=== PATIENT | female | born 1940 | race Caucasian/White ===

== ENCOUNTER 2018-02-27 12:31 | Inpatient (IN) ==
--- NOTE | 2018-02-27 12:51 | Emergency Department Note ---
Disposition Clinical Impression: Abnormal LFTs (liver function tests), Sinus bradycardia, Lightheadedness, Generalized weakness Acute kidney failure Qualifiers: Acute renal failure type: unspecified Qualified Code(s): N17.9 - Acute kidney failure, unspecified Leukocytosis, unspecified Qualifiers: Leukocytosis type: unspecified Qualified Code(s): D72.829 - Elevated white blood cell count, unspecified Nausea & vomiting Qualifiers: Vomiting type: unspecified Vomiting Intractability: unspecified Qualified Code( s): R11.2 - Nausea with vomiting, unspecified Disposition: Admitted As Inpatient Condition: Fair Referrals: Vinicius Jones MD [Primary Care Provider] - Forms: ED Satisfaction Letter Time of Disposition: 16:15 General Adult HPI - General Chief complaint: ED Abdominal Pain Stated complaint: DAYO -need UTS sent from [place] ER/nausea Time Seen by Provider: 02/27/18 12:35 Source: patient, EMS, customer relations consultant, other Mode of arrival: wheelchair Limitations: no limitations Nursing Notes Reviewed: Yes Vital Signs Reviewed: Yes - History of Present Illness HPI Narrative: 77 y F with PMHX of HTN, HL, and hypothyroidism presenting with acute onset of nausea and with subsequent dizziness. Context: Patient was making bed sheets at time of onset of nausea. Onset: yesterday evening at approx. 8 pm. Duration: For remainder of evening. Quality: Patient rates 10/10, which has now relieved, dizziness has remained on standing until this morning, which is why she presented to the ED. Modifying factors: Dizziness worsens with walking. Palliating factors: None identified. Associated symptoms:Endorses early satiety for an unknown period and weakness x 1 year. Denies any yellowing of skin or yes. Denies abdominal pain or urinary symptoms. Endorses taking Tylenol BID. Denies any additional OTC pain medication. Endorses urine output remains at baseline, however has not had any fluids this morning because of her intention to go to the hospital and believed she had to be NPO for ED visit. No alcohol use. No illicit drug use. Last hospitalization: Pt was hospitalized June 2017 following a compression fracture. Pain Scale: 0 - Related Data Home Medications Medication Instructions Recorded Confirmed ALPRAZolam [Xanax 0.5 MG Tablet] 0.5 mg PO HS 07/10/17 02/27/18 Acetaminophen [Tylenol] 500 mg PO Q6HR PRN 07/10/17 02/27/18 Atenolol [Tenormin] 100 mg PO DAILY 07/10/17 02/27/18 Cholecalciferol (D-3) [Vitamin D] 1,000 unit PO DAILY 07/10/17 02/27/18 Cyanocobalamin (Vitamin B-12) 1,000 mcg SL DAILY 07/10/17 02/27/18 [Vitamin B-12] Levothyroxine [Synthroid] 75 mcg PO DAILY 07/10/17 02/27/18 Losartan Potassium [Cozaar] 100 mg PO DAILY 07/10/17 02/27/18 Lovastatin [Mevacor] 20 mg PO HS 07/10/17 02/27/18 Meloxicam [Meloxicam] 15 mg PO DAILY 07/10/17 02/27/18 Multivitamin [One Daily 1 each PO DAILY 07/10/17 02/27/18 Multivitamin] Tramadol HCl [Ultram] 50 mg PO TID 07/10/17 02/27/18 ALPRAZolam [Xanax 0.5 MG Tablet] 0.25 mg PO BID 02/27/18 02/27/18 Alendronate Sodium [Fosamax] 70 mg PO MO 02/27/18 02/27/18 Spironolactone [Aldactone] 25 mg PO DAILY 02/27/18 02/27/18 Allergies Allergy/AdvReac Type Severity Reaction Status Date / Time amlodipine AdvReac Nausea/WEAK Verified 02/27/18 16:14 All systems ED: reviewed and negative except as stated. Review of Systems: As Per HPI Constitutional: Reports: weakness (x1 yr). Denies: fever, chills, weight change Cardiovascular: Denies: chest pain, palpitations Respiratory: Denies: cough, dyspnea Gastrointestinal: Reports: nausea, vomiting (x1, non-bloody). Denies: abdominal pain, melena, hematochezia Genitourinary: Denies: urgency, dysuria, frequency, hematuria Musculoskeletal: Reports: back pain, arthralgia (chronic) Neurological: Reports: weakness. Denies: headache, numbness, paresthesias, confusion, abnormal gait, vertigo Hematological/Lymphatic: Reports: easy bruising. Denies: easy bleeding Past Medical History - Past Medical History Medical history: Reports: arthritis, hyperlipidemia, hypertension, thyroid disease Surgical history: Reports: appendectomy, cataract, hysterectomy, orthopedic, other Psychiatric history: Reports: anxiety - Social History Smoking Status: Former smoker Smokeless Tobacco Status: No Alcohol use: Reports: none Drug use: Reports: none Physical Exam Exam performed with attending. - General Limitations: no limitations General appearance: alert - Head Head exam: atraumatic, normocephalic, normal inspection - Eye Eye exam: Present: normal appearance, PERRL, EOMI. Absent: scleral icterus - ENT ENT exam: normal exam, normal oropharynx, mucous membranes moist - Neck Neck exam: Present: normal inspection, full ROM. Absent: lymphadenopathy, thyromegaly - Chest Chest inspection: Present: normal inspection, symmetric chest wall rise. Absent : tenderness - Respiratory Respiratory exam: Present: normal lung sounds bilaterally. Absent: respiratory distress, wheezes - Cardiovascular Cardiovascular exam: Present: normal rhythm, bradycardia, normal heart sounds - Abdominal Exam Abdominal exam: Present: soft, Non-Tender, normal bowel sounds. Absent: tenderness, organomegaly - Extremities Exam Extremities exam: Present: normal inspection. Absent: pedal edema - Back Exam Back exam: Present: normal inspection. Absent: tenderness, CVA tenderness (R), CVA tenderness (L), paraspinal tenderness - Neurological Exam Neurological exam: Present: alert, oriented X3, CN II-XII intact, reflexes normal. Absent: motor sensory deficit - Psychiatric Psychiatric exam: Present: normal affect, normal mood - Skin Skin exam: Present: warm, dry, intact, normal color. Absent: rash, diaphoresis Course - Reevaluation(s) Reevaluation #1: 14:50 - Bedside U/S completed by Dr. Marsh. CBC, BMP, hepatic panel, EKG reviewed with attending. Patient away for imaging. Will re-evaluate on return. Reevaluation #2: 15:08 - Lying comfortably, endorses dizziness on standing. Denies any pain. Awaiting U/S finding results. Reevaluation #3: 15:33 - U/S report reviewed with attending. Discussed plan with patient and family with current consideration for consultation with hospitalist, patient amenable to plan. - Consultations Consultation #1: 16:15 - Discussed clinical presentation, labs and imaging with hospitalist. Hospitalist Dr. Purcell accepts admission. Vital Signs Pulse Rate 68 02/27/18 12:40 Respiratory Rate 20 02/27/18 12:40 Blood Pressure 117/54 02/27/18 12:40 O2 Sat by Pulse Oximetry 94 02/27/18 12:40 Temperature 97.6 F 02/27/18 12:44 Pulse Rate 53 02/27/18 16:25 Respiratory Rate 20 02/27/18 16:25 Blood Pressure 88/56 02/27/18 16:25 O2 Sat by Pulse Oximetry 95 02/27/18 16:25 Oxygen Delivery Oxygen Delivery Room Air Medical Decision Making - MDM Narrative Medical decision making narrative: Patient is a 77-year-old white female with a history of arthritis, hypertension , hyperlipidemia who presents to the emergency department sent from her primary care's office. Endorses 2 week history of gradually worsening generalized weakness worse with ambulation and activities at home, endorses one episode of nonbilious nonbloody vomiting. Patient bradycardic on arrival but has a stable blood pressure and does not appear symptomatic No abdominal pain on exam. EKG showed a left bundle-branch morphology but sinus rhythm, with no change from prior EKG and no evidence of ischemia. Lab derangements renal function, as well as her transaminases. Lactate wnl. White count of 17 with a left shift. Continuous cardiac monitoring and continuous pulse ox, start IV fluids, labs to determine further etiology and imaging. - Medical Records Medical records reviewed: Yes I reviewed the patient's medical records. - Lab Data Lab results reviewed: Yes I reviewed the patient's lab results. Lab Results 02/27/18 02/27/18 Range/Units 13:52 13:52 Magnesium 2.0 (1.6-2.6) mg/dL Troponin I 0.04 H* (< 0.04) ng/mL TSH 5.297 (0.340-5.600) mcIU/mL - Radiology Data Radiology results reviewed: Yes I reviewed the patient's radiology results. Impressions Abdomen/Pelvis CT 02/27/18 13:23 IMPRESSION: Small stone measuring approximately 4 mm in diameter located within the region of the gallbladder neck, no evidence for acute cholecystitis. Postsurgical changes seen in the small bowel with bowel wall thickening noted within the distal and terminal ileum may be secondary to inflammatory changes versus possible inflammatory bowel disease or be related to chronic postsurgical changes. D/ / 02/27/2018 14:58:34 Govind Evans MD / Marianela Kearney Interpreting Provider: Govind Evans MD Bedside U/S Biliary 02/27/18 IMPRESSION: No pericholecystic fluid. Anterior gallbladder wall diameter 0.25 cm. Common bile duct diameter 0.55 cm. No sonographic Rivas's sign. Positive for stone vs. polyp. Recommendation for formal follow-up U/S. Performed by: Carlos Marsh DO Interpreting Provider: Carlos Marsh DO - EKG Data EKG #1 EKG results narrative: 13:03:11 Vent 43. QRS duration 134 ms. QT/QTc 495/440 ms. Left bundle-branch morphology but sinus rhythm, with no change from prior EKG and no evidence of ischemia. Reviewed with attending.
[2018-02-27] MEDS ORDERED: 0.9 % Sodium Chloride 500 ML IVC ONE (13:29)
--- NOTE | 2018-02-27 13:50 | Emergency Department Note ---
Disposition Clinical Impression: Abnormal LFTs (liver function tests), Sinus bradycardia, Lightheadedness, Generalized weakness Acute kidney failure Qualifiers: Acute renal failure type: unspecified Qualified Code(s): N17.9 - Acute kidney failure, unspecified Leukocytosis, unspecified Qualifiers: Leukocytosis type: unspecified Qualified Code(s): D72.829 - Elevated white blood cell count, unspecified Nausea & vomiting Qualifiers: Vomiting type: unspecified Vomiting Intractability: unspecified Qualified Code( s): R11.2 - Nausea with vomiting, unspecified Disposition: Admitted As Inpatient Condition: Fair Referrals: Vinicius Jones MD [Primary Care Provider] - Forms: ED Satisfaction Letter General Adult HPI - General Chief complaint: ED Abdominal Pain Stated complaint: DAYO -need UTS sent from [place] ER/nausea Time Seen by Provider: 02/27/18 12:35 Source: patient, EMS, beater engineer, other Mode of arrival: wheelchair Limitations: no limitations Nursing Notes Reviewed: Yes Vital Signs Reviewed: Yes - History of Present Illness Pain Scale: 0 - Related Data Home Medications Medication Instructions Recorded Confirmed ALPRAZolam [Xanax 0.5 MG Tablet] 0.5 mg PO HS 07/10/17 02/27/18 Acetaminophen [Tylenol] 500 mg PO Q6HR PRN 07/10/17 02/27/18 Atenolol [Tenormin] 100 mg PO DAILY 07/10/17 02/27/18 Cholecalciferol (D-3) [Vitamin D] 1,000 unit PO DAILY 07/10/17 02/27/18 Cyanocobalamin (Vitamin B-12) 1,000 mcg SL DAILY 07/10/17 02/27/18 [Vitamin B-12] Levothyroxine [Synthroid] 75 mcg PO DAILY 07/10/17 02/27/18 Losartan Potassium [Cozaar] 100 mg PO DAILY 07/10/17 02/27/18 Lovastatin [Mevacor] 20 mg PO HS 07/10/17 02/27/18 Meloxicam [Meloxicam] 15 mg PO DAILY 07/10/17 02/27/18 Multivitamin [One Daily 1 each PO DAILY 07/10/17 02/27/18 Multivitamin] Tramadol HCl [Ultram] 50 mg PO TID 07/10/17 02/27/18 ALPRAZolam [Xanax 0.5 MG Tablet] 0.25 mg PO BID 02/27/18 02/27/18 Alendronate Sodium [Fosamax] 70 mg PO MO 02/27/18 02/27/18 Spironolactone [Aldactone] 25 mg PO DAILY 02/27/18 02/27/18 Allergies Allergy/AdvReac Type Severity Reaction Status Date / Time amlodipine AdvReac Nausea/WEAK Verified 02/27/18 16:14 Constitutional: Reports: weakness. Denies: fever, chills, weight change Cardiovascular: Denies: chest pain, palpitations Respiratory: Denies: cough, dyspnea Gastrointestinal: Reports: nausea, vomiting (x1, non-bloody). Denies: abdominal pain, melena, hematochezia Genitourinary: Denies: urgency, dysuria, frequency, hematuria Musculoskeletal: Reports: back pain, arthralgia (chronic) Neurological: Reports: weakness Hematological/Lymphatic: Reports: easy bruising. Denies: easy bleeding Past Medical History - Past Medical History Medical history: Reports: arthritis, hyperlipidemia, hypertension, thyroid disease Surgical history: Reports: appendectomy, cataract, hysterectomy, orthopedic, other Psychiatric history: Reports: anxiety - Social History Smoking Status: Former smoker Smokeless Tobacco Status: No Alcohol use: Reports: none Drug use: Reports: none Physical Exam - General Limitations: no limitations General appearance: alert Course Vital Signs Pulse Rate 68 02/27/18 12:40 Respiratory Rate 20 02/27/18 12:40 Blood Pressure 117/54 02/27/18 12:40 O2 Sat by Pulse Oximetry 94 02/27/18 12:40 Temperature 97.6 F 02/27/18 12:44 Pulse Rate 40 02/27/18 17:00 Respiratory Rate 20 02/27/18 17:00 Blood Pressure 90/53 02/27/18 17:00 O2 Sat by Pulse Oximetry 96 02/27/18 17:00 Oxygen Delivery Oxygen Delivery Nasal Cannula Medical Decision Making - Lab Data Lab Results 02/27/18 02/27/18 Range/Units 13:52 13:52 Magnesium 2.0 (1.6-2.6) mg/dL Troponin I 0.04 H* (< 0.04) ng/mL TSH 5.297 (0.340-5.600) mcIU/mL Attestation Statement - Attestation Attestation: I examined this patient and my medical decision-making was reviewed with the Resident Physician, Dr. Woodard. I agree with the documented findings, disposition and treatment plan as described except to the extent set forth below. Patient is a 77-year-old white female with a history of arthritis, hypertension , hyperlipidemia who presents to the emergency department sent from her primary care's office for which she relates to me as a 2 week history of gradually worsening generalized weakness worse with ambulation and activities at home and over the past 48 hours is been experiencing lightheadedness with positional changes that she describes as "dizziness". Patient states that she feels okay if she is lying or seated but if she goes to stand up she has a lot of lightheadedness that seems to persist for some time and is relieved by sitting or lying back down. Patient denies any chest pain pressure or heaviness with this no palpitations or heart racing sensation, no shortness of breath, no diaphoresis. Patient's had no fevers chills recent illness cough or sore throat. Patient denies any abdominal pain but does mention that this morning early in the morning before breakfast she had one episode of nonbilious nonbloody vomiting. Patient states that she thinks she just got nauseous because she did not eat anything and she denies any vomiting since that time and no current nausea. Patient had no bowel changes no bright red blood per rectum no other symptoms. Patient's very vague with her symptomatology just states she has not been feeling quite well. Patient's bradycardic on arrival but has a stable blood pressure and does not appear symptomatic with this bradycardia. She was able to change positions from lying to seated in the bed without any recurrence of symptoms and while sitting in the bed is asymptomatic. I agree with patient's physical exam findings as documented. BP pressure is stable. Patient had an EKG which shows a left bundle-branch morphology but sinus rhythm no change from prior EKG and no evidence of ischemia. Labs were done on an outpatient basis and in the system we have her current CBC , comp basic metabolic panel including loss and calcium, coags lipase urinalysis and tox. Patient has significant lab derangements that are new in regards to her renal function, as well as her transaminases. Lactate is within normal limits despite a white count of 17 with a left shift. Clinically patient has no symptoms or complaints leading to possible infection. At this time we will keep the patient on cardiac monitoring and continuous pulse ox, start IV fluids, obtain additional lab work and imaging. Patient is in no acute distress at this time we will monitor closely. Patient has remained hemodynamically stable with no clinical changes throughout her ED course. CT abdomen and pelvis show possible stone in the neck the gallbladder without wall thickening or pericholecystic inflammatory changes. Remainder of CT is unremarkable. Gallbladder ultrasound showed some question we will change in the liver consistent with hemangioma no other additional findings. Patient will be admitted for further evaluation of her acute renal insufficiency as well as her transaminitis, and leukocytosis with unclear etiology. Case was discussed with hospitalist who accepted patient for admission for further evaluation and management.
[2018-02-27 14:39] LABS: Thyroid Stimulating Hormone 5.297 mcIU/mL (0.340-5.600)
--- NOTE | 2018-02-27 20:04 | Internal Med History&Physical ---
Date of Encounter: 02/27/18 Time of Encounter: 20:03 Internal Medicine - H&P: HPI Chief complaint: nausea and lightheadedness Admitted From: Emergency Dept Plans for Post Hospital Care: Home History of present illness: Ms. Gabriel is a 77 year old female Patient with history of hypertension, hypothyroidism, arthritis and high cholesterol. Patient was seen at the [facility] emergency room and then transferred here to the emergency room here for further evaluation. Patient has symptoms of generalized weakness , feeling very tired for several days also lightheadedness especially when she stands up with some nausea but no vomiting on arrival to the emergency room patient with bradycardia docu, ented 40s but normal blood pressure patient denies any chest pain some mild abdominal pain. Evaluation showed several abnormalities CT of the abdomen showed stone in the gallbladder 4 mm with no cholecystitis follow- up ultrasound showed liver abnormalities possible cyst vs hemangioma . lIver enzyme markedly elevated liver enzymes AST over 1000 ALT over 500 with normal bilirubin lipase was normal also acute renal injury creatinine was 3.2 with a potassium of 5.7 also had a white count of 17.5 patient is admitted for further evaluation.. Patient denies any abdominal pain at present and feels back to normal heart rates last one recorded at 68 bpm with normal blood pressure patient apparently was taking atenolol 100 mg once a day Past Med Surg Social Fam HX - Past Medical History Medical history: arthritis, hyperlipidemia, hypertension, osteoporosis, thyroid disease Psychiatric history: anxiety - Past Surgical History Surgical History: appendectomy, cataract, hysterectomy, orthopedic, other - Social History Smoking Status: Former smoker Smokeless Tobacco Status: No Alcohol use: none Drug use: none - Family History Father Name: Ramiro Zhao Family Member Ethnicity: Non- Living Status: Age at : 55 Cause of : [place] Hx Family Cardiac Disorders: Yes Hx Family Respiratory Disorders: No Hx Family Cancer: No Hx Family GI Disorders: No Hx Family Genitourinary Disorders: No Hx Family Endocrine Disorder: No Hx Family Musculoskeletal Disorders: No Hx Family Neuromuscular Disorders: No Hx Family Neurologic Disorders: No Hx Family HEENT Disorders: No Hx Family Autoimmune Disorders: No Hx Family Reproductive Disorders: No Hx Family Psychosocial Disorders: No Hx Family Medical Disorders: No Internal Medicine - H&P: Meds ALPRAZolam [Xanax 0.5 MG Tablet] 0.5 mg PO HS 07/10/17 [History] Acetaminophen [Tylenol] 500 mg PO Q6HR PRN 07/10/17 [History] Atenolol [Tenormin] 100 mg PO DAILY 07/10/17 [History] Cholecalciferol (D-3) [Vitamin D] 1,000 unit PO DAILY 07/10/17 [History] Cyanocobalamin (Vitamin B-12) [Vitamin B-12] 1,000 mcg SL DAILY 07/10/17 [ History] Levothyroxine [Synthroid] 75 mcg PO DAILY 07/10/17 [History] Losartan Potassium [Cozaar] 100 mg PO DAILY 07/10/17 [History] Lovastatin [Mevacor] 20 mg PO HS 07/10/17 [History] Meloxicam [Meloxicam] 15 mg PO DAILY 07/10/17 [History] Multivitamin [One Daily Multivitamin] 1 each PO DAILY 07/10/17 [History] Tramadol HCl [Ultram] 50 mg PO TID 07/10/17 [History] ALPRAZolam [Xanax 0.5 MG Tablet] 0.25 mg PO BID 02/27/18 [History] Alendronate Sodium [Fosamax] 70 mg PO MO 02/27/18 [History] Spironolactone [Aldactone] 25 mg PO DAILY 02/27/18 [History] 3 Allergy/AdvReac Type Severity Reaction Status Date / Time amlodipine AdvReac Nausea/WEAK Verified 02/27/18 16:14 All Systems PM: A 10-system review of systems was performed and is negative for pertinent findings except as documented above in the HPI. - Constitutional Vitals: Temp Pulse Resp BP Pulse Ox 97.7 F 49 16 122/59 96 02/27/18 20:01 02/27/18 20:01 02/27/18 20:01 02/27/18 20:01 02/27/18 20:01 General appearance: Present: pleasant - Eye Eye exam: Present: PERRL, conjuntiva pink, sclera anicteric Pupils: Present: PERRL - Neck Neck exam general surgery: Present: supple, trachea midline. Absent: lymphadenopathy - Respiratory Respiratory exam: Present: CTAB. Absent: accessory muscle use, rales, rhonchi, wheezes - Cardiovascular Cardiovascular exam: Present: RRR, +S1, +S2. Absent: diastolic murmur, gallop, rubs, systolic murmur - GI/Abdominal GI/Abdominal exam: Present: normal bowel sounds, soft, no peritoneal signs. Absent: distended, tenderness - Extremities Exam Extremities exam: Present: warm, radial pulses palpable and symmetrical. Absent : calf tenderness, cyanotic, pedal edema - Assessment and plan (1) Abnormal liver function tests Current Visit: Yes Status: Acute Assessment and plan: Abnormal liver enzyme of hepatitis profile elevated AST and ALT with normal bilirubin was sent hepatitis profile consult GI (2) Acute kidney failure Current Visit: Yes Status: Acute Assessment and plan: Acute kidney injury is possible same process that caused elevated liver enzyme and acute kidney injury suggest possible hypovolemia or hypotensive episodes , likely cause atn and shock liver Qualifiers: Acute renal failure type: unspecified Qualified Code(s): N17.9 - Acute kidney failure, unspecified (3) Generalized weakness Current Visit: Yes Status: Acute Assessment and plan: Nonspecific symptoms was started on IV hydration (4) Leukocytosis, unspecified Current Visit: Yes Status: Acute Assessment and plan: Possible reactive leukocytosis UA is unremarkable with a urine culture chest x- ray in a.m. Qualifiers: Leukocytosis type: bandemia Qualified Code(s): D72.825 - Bandemia (5) Lightheadedness Current Visit: Yes Status: Acute Assessment and plan: Description is suggestive of orthostatic hypotension (6) Sinus bradycardia Current Visit: Yes Status: Acute Assessment and plan: Patient is some atenolol 100 mg once a day with hold and place on telemetry for monitor - Time Spent With Patient Total time spent is greater than 50% in coordination of care (as documented) at patient's floor/unit and/or counseling patient:
[2018-02-27] MEDS ORDERED: Naloxone 0.4 MG/ML INJ IVP PRN ×2 (20:19→20:21)
[2018-02-27] MEDS ORDERED: Acetaminophen 325 MG TABLET PO PRN (20:21)
[2018-02-27 21:34] LABS: Alanine Aminotransferase > 500 Units/L (7-52); Albumin 3.8 g/dL (3.5-5.7); Albumin/Globulin Ratio 1.8 (1.1-2.2); Alkaline Phosphatase 60 Units/L (34-104); Aspartate Amino Transferase 1495 Units/L (13-39); Bilirubin,Direct 0.2 mg/dL (0.0-0.2); Bilirubin,Indirect 0.2 mg/dL (0.0-1.2); Bilirubin,Total 0.4 mg/dL (0.3-1.0); Globulin 2.1 g/dL (2.4-3.5); Total Protein 5.9 g/dL (6.4-8.9)
[2018-02-27] MEDS: ALPRAZolam 0.5 MG TABLET PO SCH ×2 (22:10)
[2018-02-27] MEDS: 0.9 % Sodium Chloride 1,000 ML IVC SCH (22:11)
[2018-02-28 02:39] LABS: Red Cell Distribution Width 13.1 % (11.5-14.5)
[2018-02-28 02:41] LABS: Hematocrit 34.2 % (35.3-44.9); Hemoglobin 10.6 g/dL (11.5-15.4); Immature Platelets 3.1 % (1.1-6.1); Mean Corpuscular Hemoglobin 31.3 pg (28.0-33.3); Mean Corpuscular Volume 100.9 fL (83.0-100.0); Mean Platelet Volume 10.3 fL (9.4-12.4); Red Blood Count 3.39 M/mcL (3.82-4.97)
[2018-02-28 03:35] LABS: Aspartate Amino Transferase 1096 Units/L (13-39)
[2018-02-28 03:42] LABS: Alanine Aminotransferase > 500 Units/L (7-52); Albumin 3.6 g/dL (3.5-5.7); Albumin/Globulin Ratio 1.7 (1.1-2.2); Alkaline Phosphatase 61 Units/L (34-104); BUN/Creatinine Ratio 23 (6-26); Bilirubin,Total 0.3 mg/dL (0.3-1.0); Blood Urea Nitrogen 50 mg/dL (8-23); Calcium 8.1 mg/dL (8.6-10.3); Carbon Dioxide 23 mEq/L (23-29); Chloride 109 mEq/L (98-107); Cholesterol 137 mg/dL (< 200); Globulin 2.1 g/dL (2.4-3.5); Glucose 100 mg/dL (70-105); HDL Cholesterol 45 mg/dL (40-59); LDL Cholesterol,Calculated 59 mg/dL (0-99); Magnesium 2.2 mg/dL (1.6-2.6); Osmolality,Calculated 299 (280-300); Potassium 5.1 mEq/L (3.5-5.1); Sodium 138 mEq/L (136-145); Total Protein 5.7 g/dL (6.4-8.9); Triglycerides 166 mg/dL (< 150); eGFR For African Americans 26 (> 60); eGFR For Non-African Americans 22 (> 60)
--- NOTE | 2018-02-28 08:04 | Internal Med Progress Note ---
Date of Encounter: 02/28/18 Time of Encounter: 07:30 - Assessment and plan (1) Abnormal liver function tests Current Visit: Yes Status: Acute Assessment and plan: LFTs with shock liver Likely 2/2 to hypoperfusion and severe dehydration. Patient also admits to taking up to 2000mg of tylenol per day. Obtain tylenol levels. CT abdomen showed gall stone but no biliary dilatation. continue IV fluids. Appreciate GI recs (2) Leukocytosis, unspecified Current Visit: Yes Status: Acute Assessment and plan: Likley 2/2 to dehydration. Resolved with IV fluids Qualifiers: Leukocytosis type: bandemia Qualified Code(s): D72.825 - Bandemia (3) Generalized weakness Current Visit: Yes Status: Acute Assessment and plan: Continue IV fluid resuscitation (4) Nausea & vomiting Current Visit: Yes Status: Acute Assessment and plan: Zofran PRN Qualifiers: Vomiting type: unspecified Vomiting Intractability: unspecified Qualified Code(s): R11.2 - Nausea with vomiting, unspecified (5) Acute kidney failure Current Visit: Yes Status: Acute Assessment and plan: CReatinine trending down. Continue fluids. Avoid nephrotoxic meds Qualifiers: Acute renal failure type: unspecified Qualified Code(s): N17.9 - Acute kidney failure, unspecified (6) Sinus bradycardia Current Visit: Yes Status: Acute Assessment and plan: Atenolol on hold (7) DVT prophylaxis Current Visit: Yes Status: Acute Assessment and plan: Heparin sc q 12 - Time Spent With Patient Total time spent is greater than 50% in coordination of care (as documented) at patient's floor/unit and/or counseling patient: - Subjective Interval history: No acute events overnight - Constitutional Vitals: Temp Pulse Resp BP Pulse Ox 97.9 F 73 16 168/68 96 02/28/18 07:27 02/28/18 07:27 02/28/18 07:27 02/28/18 07:27 02/28/18 07:27 General appearance: Present: pleasant - Head Head exam: Present: atraumatic, normocephalic - Eye Eye exam: Present: PERRL, conjuntiva pink, sclera anicteric Pupils: Present: PERRL - Neck Neck exam general surgery: Present: supple, trachea midline. Absent: lymphadenopathy - Respiratory Respiratory exam: Present: CTAB. Absent: accessory muscle use, rales, rhonchi, wheezes - Cardiovascular Cardiovascular exam: Present: RRR, +S1, +S2. Absent: diastolic murmur, gallop, rubs, systolic murmur - GI/Abdominal GI/Abdominal exam: Present: normal bowel sounds, soft, no peritoneal signs. Absent: distended, tenderness - Extremities Exam Extremities exam: Present: warm, radial pulses palpable and symmetrical. Absent : calf tenderness, cyanotic, pedal edema - Neurological Exam Neurological exam: Present: CN II-XII intact, oriented X3, no focal deficits. Absent: pronater drift, facial droop, speech deficit - Skin Skin exam: Present: dry, intact Internal Medicine: Result - Labs CBC & Chem 7: 02/28/18 02:21 02/28/18 02:21 Labs: Short CBC 02/28/18 Range/Units 02:21 WBC 9.2 (4.3-11.1) K/mcL Hgb 10.6 L D (11.5-15.4) g/dL Hct 34.2 L (35.3-44.9) % Plt Count 81 L (140-400) K/mcL BMP 02/28/18 02:21 Sodium 138 Potassium 5.1 Chloride 109 H Carbon Dioxide 23 BUN 50 H Creatinine 2.19 H Glucose 100 Calcium 8.1 L Cardiac Enzymes 02/27/18 02/28/18 Range/Units 20:45 02:21 Troponin I 0.04 H* 0.03 (< 0.04) ng/mL Liver Function 02/27/18 02/28/18 Range/Units 20:45 02:21 Total Bilirubin 0.4 0.3 (0.3-1.0) mg/dL Direct Bilirubin 0.2 (0.0-0.2) mg/dL AST 1495 H 1096 H (13-39) Units/L ALT > 500 H > 500 H (7-52) Units/L Alkaline Phosphatase 60 61 (34-104) Units/L Albumin 3.8 3.6 (3.5-5.7) g/dL - Impressions Impressions Chest X-Ray 02/27/18 20:25 IMPRESSION: Minimal opacities at the bases likely reflect atelectasis. Otherwise no acute process. D/ / 02/27/2018 23:03:53 Alfredo Perdue MD / bcarter Interpreting Provider: Alfredo Perdue MD Consult Discharge Plan - Plan Referrals: Vinicius Jones MD [Primary Care Provider] -
[2018-02-28] MEDS: ALPRAZolam 0.5 MG TABLET PO SCH ×2 (08:08→22:09)
[2018-02-28] MEDS: Cholecalciferol (D-3) 1,000 UNIT TABLET PO SCH (08:08)
[2018-02-28] MEDS: Cyanocobalamin (B-12) 1,000 MCG TABLET PO SCH (08:09)
[2018-02-28] MEDS: Multivit/Ca/Min/Fe/FA 1 TAB TABLET PO SCH (08:09)
[2018-02-28] MEDS: traMADol 50 MG TABLET PO PRN ×2 (08:09→21:01)
[2018-02-28] MEDS: 0.9 % Sodium Chloride 1,000 ML IVC SCH (08:13)
[2018-02-28] MEDS ORDERED: Spironolactone 25 MG TABLET PO SCH (09:00)
[2018-02-28 09:58] LABS: Hepatitis A Antibody IgM Nonreactive (Nonreactive); Hepatitis B Core IgM Nonreactive (Nonreactive); Hepatitis B Surface Antigen Nonreactive (Nonreactive); Hepatitis C Virus Antibody Nonreactive (Nonreactive)
--- NOTE | 2018-02-28 12:04 | Gastroenterology Consult Note ---
<Michelle Dean - Last Filed: 02/28/18 12:01> Date of Encounter: 02/28/18 Time of Encounter: 10:00 - Assessment and plan (1) Abnormal liver function tests Current Visit: Yes Status: Acute Assessment and plan: Pt presents with dizziness and weakness. She had abnormal LFTs and DAYO, improving with IVF. Elevated LFTs likely due to shock liver, however US shows gallstone in neck of gallbladder. Will order MRCP to rule out choledocholithiasis. Will also order hepatitis panel and labs for autoimmune hepatitis. - Time Spent With Patient Total time spent is greater than 50% in coordination of care (as documented) at patient's floor/unit and/or counseling patient: GI History of Present Illness - Data of Consult Patient: new to practice Consult date: 02/28/18 Requesting Physician: Marcelo Purcell - Consult Narrative Reason for consult: elevated LfTs History of present illness: Ms. Gabriel is a 77 year old female patient with history of hypertension, hypothyroidism, arthritis and high cholesterol. Patient reports generalized weakness, dizziness, and increased fatique. On arrival to the emergency room patient with bradycardia documented 40s but normal blood pressure.She denies any chest pain some mild abdominal pain. Evaluation showed several abnormalities CT of the abdomen showed stone in the gallbladder 4 mm with no cholecystitis follow-up ultrasound showed liver abnormalities ossible cyst vs hemangioma. Liver enzyme were markedly elevated, with an AST over 1000, ALT over 500 with normal bilirubin, and lipase was normal. She was also found to have an acute kidney injury. She denies fever, chills, abdominal pain, prolonged nausea or vomiting or recent illness. She reports normal appetitie, denies any recent weight loss. She does admit to occasional bloating and early satiety. She admits to taking tylenol 2000 mg daily for the past year. She denies any alcohol or drug use. EGD: denies colon: < 5 years ago NSAIDS: denies anticoagulants: denies Past Med Surg Social Fam HX - Past Medical History Medical history: arthritis, hyperlipidemia, hypertension, osteoporosis, thyroid disease Psychiatric history: anxiety - Past Surgical History Surgical History: appendectomy, cataract, hysterectomy, orthopedic, other - Social History Smoking Status: Former smoker Smokeless Tobacco Status: No Alcohol use: none Drug use: none - Family History Father Name: Ramiro Zhao Family Member Ethnicity: Non- Living Status: Age at : 55 Cause of : [place] Hx Family Cardiac Disorders: Yes Hx Family Respiratory Disorders: No Hx Family Cancer: No Hx Family GI Disorders: No Hx Family Genitourinary Disorders: No Hx Family Endocrine Disorder: No Hx Family Musculoskeletal Disorders: No Hx Family Neuromuscular Disorders: No Hx Family Neurologic Disorders: No Hx Family HEENT Disorders: No Hx Family Autoimmune Disorders: No Hx Family Reproductive Disorders: No Hx Family Psychosocial Disorders: No Hx Family Medical Disorders: No Review of Systems: GI: as per [place] GENERAL: denies fever, has some chills EYES: denies yellow discoloration ENT: denies pain with swallowing or difficulty swallowing CARDIO: denies chest pain, palpitations RESP: Shortness of breath with exertion : denies change in color of urine NEURO: increased weakness HEME: Denies any bruising MS: chronic back pain DERM: denies rash or itching PSYCH: Denies history of anxiety or depression - Constitutional Vitals: Temp Pulse Resp BP Pulse Ox 97.7 F 87 17 147/74 93 02/28/18 11:43 02/28/18 11:43 02/28/18 11:43 02/28/18 11:43 02/28/18 11:43 Exam: CONSTITUTIONAL:~alert, no acute distress.~HEAD:~normocephalic.~EYES:~no jaundice.~NECK:~no obvious swelling.~HEART:~regular rate and rhythm, no murmurs. ~LUNGS:~bilateral good air entry.~ABDOMEN:~non distended, soft, non tander, no masses pulpable, no organomegaly.~RECTAL EXAM:~Deferred.~EXTREMITIES:~no clubbing, cyanosis or edema.~SKIN:~no stigmata of chronic liver disease.~ NEUROLOGIC:~no obvious focal defect.~~~~ Results - Labs CBC & Chem 7: 02/28/18 02:21 02/28/18 02:21 Labs: Last Result Calcium 8.1 mg/dL (8.6-10.3) L 02/28/18 02:21 Troponin I 0.04 ng/mL (< 0.04) H* 02/28/18 09:06 Triglycerides 166 mg/dL (< 150) H 02/28/18 02:21 Entire Visit Hgb 10.6 g/dL (11.5-15.4) L D 02/28/18 02:21 Hct 34.2 % (35.3-44.9) L 02/28/18 02:21 Total Bilirubin 0.3 mg/dL (0.3-1.0) 02/28/18 02:21 AST 1096 Units/L (13-39) H 02/28/18 02:21 ALT > 500 Units/L (7-52) H 02/28/18 02:21 Acetaminophen < 10 mcg/mL (10-20) L 02/28/18 09:06 - Impressions Impressions Chest X-Ray 02/27/18 20:25 IMPRESSION: Minimal opacities at the bases likely reflect atelectasis. Otherwise no acute process. D/ / 02/27/2018 23:03:53 Alfredo Perdue MD / miguel angel Interpreting Provider: Alfredo Perdue MD Abdomen MRI 02/28/18 08:25 IMPRESSION: 1. Re- demonstration of stone near the gallbladder neck. Mild pericholecystic edema. Findings may represent cholecystitis in the appropriate clinical setting. Consider further evaluation with HIDA scan as clinically warranted. 2. Normal caliber bile ducts without evidence of filling defect. 3. Few incidental/chronic findings as described. D/ / Cynthia Henderson MD / Cynthia Henderson MD Interpreting Provider: Cynthia Henderson MD Consult Discharge Plan - Plan Referrals: Vinicius Jones MD [Primary Care Provider] - <Zeny Haque - Last Filed: 02/28/18 13:22> Date of Encounter: 02/28/18 - Time Spent With Patient Total time spent is greater than 50% in coordination of care (as documented) at patient's floor/unit and/or counseling patient: GI History of Present Illness - Data of Consult Requesting Physician: Marcelo Purcell - Consult Narrative History of present illness: Ms. Gabriel is a 77 year old female - Constitutional Vitals: Temp Pulse Resp BP Pulse Ox 97.7 F 87 17 147/74 93 02/28/18 11:43 02/28/18 11:43 02/28/18 11:43 02/28/18 11:43 02/28/18 11:43 Results - Labs CBC & Chem 7: 02/28/18 02:21 02/28/18 02:21 Labs: Last Result Calcium 8.1 mg/dL (8.6-10.3) L 02/28/18 02:21 Troponin I 0.04 ng/mL (< 0.04) H* 02/28/18 09:06 Triglycerides 166 mg/dL (< 150) H 02/28/18 02:21 Entire Visit Hgb 10.6 g/dL (11.5-15.4) L D 02/28/18 02:21 Hct 34.2 % (35.3-44.9) L 02/28/18 02:21 Total Bilirubin 0.3 mg/dL (0.3-1.0) 02/28/18 02:21 AST 1096 Units/L (13-39) H 02/28/18 02:21 ALT > 500 Units/L (7-52) H 02/28/18 02:21 Acetaminophen < 10 mcg/mL (10-20) L 02/28/18 09:06 - Impressions Impressions Chest X-Ray 02/27/18 20:25 IMPRESSION: Minimal opacities at the bases likely reflect atelectasis. Otherwise no acute process. D/ / 02/27/2018 23:03:53 Alfredo Perdue MD / miguel angel Interpreting Provider: Alfredo Perdue MD Abdomen MRI 02/28/18 08:25 IMPRESSION: 1. Re- demonstration of stone near the gallbladder neck. Mild pericholecystic edema. Findings may represent cholecystitis in the appropriate clinical setting. Consider further evaluation with HIDA scan as clinically warranted. 2. Normal caliber bile ducts without evidence of filling defect. 3. Few incidental/chronic findings as described. D/ / Cynthia Henderson MD / Cynthia Henderson MD Interpreting Provider: Cynthia Henderson MD - Attending Attestation I have personally performed a face to face evaluation on this patient. I have reviewed and agree with the care plan. History and Exam by me shows: Patient seen currently denies any abdominal pain. Has been feeling very weak prior to hospitalization and per family blood pressure was low. Does has abnormal LFTs on presentation along with the acute kidney injury. Both suspicious for ischemic injury from hypotension. Rec: MRCP to rule out CBD obstruction although on ultrasound CBD is normal in caliber. Gentle hydration. We will do hepatitis profile and ANATOLY and AMA.
--- NOTE | 2018-02-28 12:34 | Nephrology Consult Note ---
Date of Encounter: 02/28/18 Time of Encounter: 12:09 Assessment and Plan (1) Shock Current Visit: Yes Status: Acute See acute kidney failure. Resolving. (2) Abnormal liver function tests Current Visit: Yes Status: Acute See acute kidney failure GI is following. Improving. (3) Acute kidney failure Current Visit: Yes Status: Acute The patient presented with nonoliguric acute kidney injury that appears to be secondary to cardiogenic shock from overcontrol of her blood pressure. She presented with bradycardia and low blood pressure. With holding her antihypertensive medications her blood pressure starting to improve along with her heart rate and her liver enzymes and renal function are also improving. At this time I expect recovery of her renal function back to baseline which may be the a high level stage III chronic kidney disease based off her previous labs. I will check her renal ultrasound along with a urinalysis. Will hold meloxicam for now. Qualifiers: Acute renal failure type: unspecified Qualified Code(s): N17.9 - Acute kidney failure, unspecified (4) Hypertension Current Visit: Yes Status: Acute Monitor blood pressure. She may need the addition of hypertensive medications as her blood pressure recovers. She is tolerating losartan for now. Qualifiers: Qualified Code(s): I10 - Essential (primary) hypertension History of Present Illness - Reason for Consult Consult date: 02/28/18 Acute Kidney Injury - Chief Complaint DAYO - History of Present Illness Ms. Gabriel is a 77 yo woman with a history of hypertension who presents as a transfer secondary to DAYO and worsening liver function. The history is obtained from talking with the patient and her family as well as review of the electronic medical records. The patient reports that over the last 2-4 weeks she has noticed increased lethargy and weakness this worsens the week of admission and the 2 days prior to admission she noticed that it was harder for her to stand and the day of admission she noticed that she almost passed out. Upon reaching the emergency medical facility she was found to have acute kidney injury along with elevated liver enzymes and was subsequently transferred to [facility]. She reports that she feels much better now. Her family is at bedside. They report they have been concerned about her blood pressure, however, she does not check her blood pressure at home. She reports that about 2-4 weeks ago she was started on spironolactone. The patient does take meloxicam at home. She denies nausea vomiting or diarrhea prior to admission. Past Med Surg Social Fam HX - Past Medical History Medical history: arthritis, hyperlipidemia, hypertension, osteoporosis, thyroid disease Psychiatric history: anxiety - Past Surgical History Surgical History: appendectomy, cataract, hysterectomy, orthopedic, other - Social History Smoking Status: Former smoker Smokeless Tobacco Status: No Alcohol use: none Drug use: none - Family History Father Name: Ramiro Zhao Family Member Ethnicity: Non- Living Status: Age at : 55 Cause of : [place] Hx Family Cardiac Disorders: Yes Hx Family Respiratory Disorders: No Hx Family Cancer: No Hx Family GI Disorders: No Hx Family Genitourinary Disorders: No Hx Family Endocrine Disorder: No Hx Family Musculoskeletal Disorders: No Hx Family Neuromuscular Disorders: No Hx Family Neurologic Disorders: No Hx Family HEENT Disorders: No Hx Family Autoimmune Disorders: No Hx Family Reproductive Disorders: No Hx Family Psychosocial Disorders: No Hx Family Medical Disorders: No Medications and Allergies ALPRAZolam [Xanax 0.5 MG Tablet] 0.5 mg PO HS 07/10/17 [History] Acetaminophen [Tylenol] 500 mg PO Q6HR PRN 07/10/17 [History] Atenolol [Tenormin] 100 mg PO DAILY 07/10/17 [History] Cholecalciferol (D-3) [Vitamin D] 1,000 unit PO DAILY 07/10/17 [History] Cyanocobalamin (Vitamin B-12) [Vitamin B-12] 1,000 mcg SL DAILY 07/10/17 [ History] Levothyroxine [Synthroid] 75 mcg PO DAILY 07/10/17 [History] Losartan Potassium [Cozaar] 100 mg PO DAILY 07/10/17 [History] Lovastatin [Mevacor] 20 mg PO HS 07/10/17 [History] Meloxicam [Meloxicam] 15 mg PO DAILY 07/10/17 [History] Multivitamin [One Daily Multivitamin] 1 each PO DAILY 07/10/17 [History] Tramadol HCl [Ultram] 50 mg PO TID 07/10/17 [History] ALPRAZolam [Xanax 0.5 MG Tablet] 0.25 mg PO BID 02/27/18 [History] Alendronate Sodium [Fosamax] 70 mg PO MO 02/27/18 [History] Spironolactone [Aldactone] 25 mg PO DAILY 02/27/18 [History] 3 Allergy/AdvReac Type Severity Reaction Status Date / Time amlodipine AdvReac Nausea/WEAK Verified 02/27/18 16:14 Review of Systems All Systems: reviewed and no additional remarkable complaints except as stated ( As documented in history of present illness.) Exam - Vital Signs Vital signs: Initial Vital Signs Pulse Resp BP Pulse Ox 68 20 117/54 94 02/27/18 12:40 02/27/18 12:40 02/27/18 12:40 02/27/18 12:40 Vital Signs - Last 8 Hours Temp Pulse Resp BP Pulse Ox 02/28/18 11:43 97.7 F 87 17 147/74 93 02/28/18 07:27 97.9 F 73 16 168/68 96 Intake and Output 02/27/18 02/28/18 02/28/18 23:59 07:59 15:59 Intake Total 1000 / 1000 Output Total 350 / 350 Balance -350 / -350 1000 / 1000 Intake: IV Fluids 1000 / 1000 0.9 % Sodium Chloride 1,000 ML 1000 / 1000 @ 100 mls/hr IVC .Q10H SHAYLA Rx#: [id number] Output: Urine 350 / 350 Other: # Voids 1 1 - General Appearance General appearance: well-developed, well-nourished EENT: ATNC Neck: supple Respiratory: clear Cardiology: no edema, regular rate, regular rhythm Gastrointestinal: no tenderness Integumentary: warm and dry Neurologic: alert and oriented x3 Musculoskeletal: no cyanosis Psychiatric: mood/affect appropriate Results - Lab Results 02/28/18 02:21 02/28/18 02:21 Most recent lab results Calcium 8.1 mg/dL (8.6-10.3) L 02/28/18 02:21 Magnesium 2.2 mg/dL (1.6-2.6) 02/28/18 02:21 Consult Discharge Plan - Plan Referrals: Vinicius Jones MD [Primary Care Provider] -
[2018-02-28] MEDS: *HR* Heparin 5,000 UNIT/ML VIAL SQ SCH (17:12)
--- NOTE | 2018-02-28 18:54 | Electrocardiograph Report ---
[address] [place], [place] [address] Test Date: 2018-02-28 Pat Name: Toña Gabriel Department: 114 Room: [facility] Gender: F [place]: : 1940 Requested By: [id number] Order Number: [id number] Reading MD: Windy Alicia Measurements Intervals [place] Rate: 73 P: 75 NV: 157 QRS: 31 QRSD: 136 T: 124 QT: 415 QTc: 441 Interpretive Statements SINUS RHYTHM INTRAVENTRICULAR CONDUCTION DELAY POSSIBLE ANTERIOR MYOCARDIAL INFARCTION, OF INDETERMINATE AGE Electronically Signed On 02-28-2018 18:53:05 EDT by Windy Alicia
[2018-02-28] MEDS ORDERED: 0.9 % Sodium Chloride 1,000 ML ONE (22:00)
[2018-03-01] MEDS: 0.9 % Sodium Chloride 1,000 ML IVC SCH ×2 (00:06→09:08)
[2018-03-01 01:40] LABS: Basophils % 0.5 %; Monocytes % 5.8 %; Nucleated Red Blood Cells 0.7 /100 WBC (0)
[2018-03-01 01:42] LABS: Eosinophils # 0.1 K/mcL (0.0-0.6); Eosinophils % 1.3 %; Hematocrit 32.9 % (35.3-44.9); Hemoglobin 10.1 g/dL (11.5-15.4); Immature Granulocytes % 1.2 % (0-4); Immature Platelets 3.2 % (1.1-6.1); Lymphocytes # 1.4 K/mcL (0.6-4.6); Lymphocytes % 18.8 %; Mean Corpuscular HGB Conc 30.7 g/dL (31.6-35.5); Mean Corpuscular Hemoglobin 31.4 pg (28.0-33.3); Mean Corpuscular Volume 102.2 fL (83.0-100.0); Mean Platelet Volume 10.1 fL (9.4-12.4); Monocytes # 0.4 K/mcL (0.0-1.3); Neutrophils # 5.5 K/mcL (1.6-8.9); Red Blood Count 3.22 M/mcL (3.82-4.97); Red Cell Distribution Width 13.1 % (11.5-14.5); Segmented Neutrophils % 72.4 %
[2018-03-01 01:57] LABS: Platelet Count 83 K/mcL (140-400)
[2018-03-01 02:03] LABS: Alanine Aminotransferase > 500 Units/L (7-52); Albumin 3.4 g/dL (3.5-5.7); Albumin/Globulin Ratio 1.6 (1.1-2.2); Alkaline Phosphatase 58 Units/L (34-104); Aspartate Amino Transferase 471 Units/L (13-39); Bilirubin,Direct 0.1 mg/dL (0.0-0.2); Bilirubin,Indirect 0.2 mg/dL (0.0-1.2); Bilirubin,Total 0.3 mg/dL (0.3-1.0); Calcium 8.1 mg/dL (8.6-10.3); Globulin 2.1 g/dL (2.4-3.5); Magnesium 2.1 mg/dL (1.6-2.6); Potassium 5.2 mEq/L (3.5-5.1); Total Protein 5.5 g/dL (6.4-8.9)
[2018-03-01] MEDS: *HR* Heparin 5,000 UNIT/ML VIAL SQ SCH ×2 (06:07→18:32)
[2018-03-01 07:52] LABS: Bilirubin,Urine Negative (Negative); Blood,Urine Small (Negative); Clarity,Urine Clear (Clear); Color,Urine Yellow (Yellow); Glucose,Urine (UA) Normal (Normal); Ketones,Urine Negative (Negative); Leukocyte Esterase,Urine Trace (Negative); Nitrite,Urine Negative (Negative); Protein,Urine Trace mg/dL (Neg-Trace); Specific Gravity,Urine 1.014 (1.010-1.025); Urobilinogen,Urine Normal (Normal)
[2018-03-01 07:55] LABS: Bacteria,Urine None Seen per hpf (None-Few); Hyaline Casts,Urine None Seen per lpf (None-Few); RBC,Urine 0-3 per hpf (0-3); Squamous Epithelial Cell,Urine Moderate per lpf (None-Few); WBC,Urine 0-3 per hpf (0-3)
[2018-03-01] MEDS: Cholecalciferol (D-3) 1,000 UNIT TABLET PO SCH (09:09)
[2018-03-01] MEDS: Cyanocobalamin (B-12) 1,000 MCG TABLET PO SCH (09:09)
[2018-03-01] MEDS: ALPRAZolam 0.5 MG TABLET PO SCH ×3 (09:09→20:17)
[2018-03-01] MEDS: Multivit/Ca/Min/Fe/FA 1 TAB TABLET PO SCH (09:09)
[2018-03-01] MEDS: traMADol 50 MG TABLET PO PRN ×2 (09:55→20:16)
--- NOTE | 2018-03-01 11:06 | Nephrology Progress Note ---
Date of Encounter: 03/01/18 Time of Encounter: 11:03 - Assessment and Plan (1) Acute kidney failure Current Visit: Yes Status: Acute Patient renal function continues to improve. Etiology does appear to be secondary to shock. With her continued improvement she no longer needs intravenous fluids especially in light of probable reveals an basis and increasing dyspnea. This is also associated with improvement in her blood pressure and she is now hypertensive. Would like to see her renal function continued to improve off intravenous hydration. If her dyspnea persist she may need CXR and possible diuresis if pulmonary edema is present. Qualifiers: Acute renal failure type: unspecified Qualified Code(s): N17.9 - Acute kidney failure, unspecified (2) Shock Current Visit: Yes Status: Acute Resolved. (3) Abnormal liver function tests Current Visit: Yes Status: Acute Likely secondary to shock liver. Her AST continues to improve. (4) Hypertension Current Visit: Yes Status: Acute Patient's hypertension is returning. Agree with titrating her antihypertensive regimen. I added her atenolol back today and this may need to be titrated upward if her blood pressure remains elevated. Qualifiers: Qualified Code(s): I10 - Essential (primary) hypertension Subjective Principal diagnosis: DAYO Interval history: Ms. Gabriel is a 77 yo woman with DAYO. She complains of feeling more tired and weak today. She denies chest pain and feels slightly more dyspneic. Objective - Vital Signs Vital signs: Vital Signs Temp Pulse Resp BP Pulse Ox 03/01/18 04:28 99.6 F 91 14 168/66 94 03/01/18 00:28 98.9 F 84 13 146/62 96 02/28/18 21:48 98.9 F 82 15 157/78 98 02/28/18 16:08 97.6 F 86 18 146/71 02/28/18 11:43 97.7 F 87 17 147/74 93 Intake and Output 02/28/18 03/01/18 03/01/18 23:59 07:59 15:59 Intake Total 1240 / 1240 Balance 1240 / 1240 Intake: IV Fluids 1000 / 1000 0.9 % Sodium Chloride 1,000 ML 1000 / 1000 @ 100 mls/hr IVC .Q10H SHAYLA Rx#: [id number] Oral 240 / 240 Other: Meal Breakfast Percent of Meal Consumed 80% # Voids 2 Weight 83.1 kg Patient Weight 03/01/18 23:59 Weight 83.1 kg - General Appearance General appearance: Present: well-developed, well-nourished EENT: Present: ATNC Neck: Present: supple Respiratory: Present: rales, rhonchi Cardiology: Present: no edema, regular rate Integumentary: Present: warm and dry Neurologic: Present: alert and oriented x3 Musculoskeletal: Present: no cyanosis Psychiatric: Present: mood/affect appropriate - Lab 03/01/18 01:15 03/01/18 01:15 Most recent lab results Calcium 8.1 mg/dL (8.6-10.3) L 03/01/18 01:15 Magnesium 2.1 mg/dL (1.6-2.6) 03/01/18 01:15 Consult Discharge Plan - Plan Referrals: Vinicius Jones MD [Primary Care Provider] -
--- NOTE | 2018-03-01 11:16 | Internal Med Progress Note ---
Date of Encounter: 03/01/18 Time of Encounter: 11:15 - Assessment and plan (1) Abnormal liver function tests Current Visit: Yes Status: Acute Assessment and plan: LFTs with shock liver Likely 2/2 to hypoperfusion and severe dehydration. Patient also admits to taking up to 2000mg of tylenol per day. Tylenol levs WNL. CT abdomen showed gall stone but no biliary dilatation. continue IV fluids. mRCP showed no evidence of biliary dilatation. LFTS trending down with IV fluids. GI following. Etiology of dehydration may be 2/2 to spironolactone. Will hold on discharge (2) Leukocytosis, unspecified Current Visit: Yes Status: Acute Assessment and plan: Likley 2/2 to dehydration. Resolved with IV fluids (3) Generalized weakness Current Visit: Yes Status: Acute Assessment and plan: Continue IV fluid resuscitation. Resolving (4) Nausea & vomiting Current Visit: Yes Status: Acute Assessment and plan: Zofran PRN Qualifiers: Vomiting type: unspecified Vomiting Intractability: unspecified Qualified Code(s): R11.2 - Nausea with vomiting, unspecified (5) Acute kidney failure Current Visit: Yes Status: Acute Assessment and plan: CReatinine trending down. Continue fluids. Avoid nephrotoxic meds. DAYO resolved Qualifiers: Acute renal failure type: unspecified Qualified Code(s): N17.9 - Acute kidney failure, unspecified (6) Sinus bradycardia Current Visit: Yes Status: Acute Assessment and plan: Atenolol has been started today low dose at 25mg daily. Will monitor (7) DVT prophylaxis Current Visit: Yes Status: Acute Assessment and plan: Heparin sc q 12 - Time Spent With Patient Total time spent is greater than 50% in coordination of care (as documented) at patient's floor/unit and/or counseling patient: - Subjective Interval history: No acute events overnight - Constitutional Vitals: Temp Pulse Resp BP Pulse Ox 99.6 F 91 14 168/66 94 03/01/18 04:28 03/01/18 04:28 03/01/18 04:28 03/01/18 04:28 03/01/18 04:28 General appearance: Present: pleasant - Head Head exam: Present: atraumatic, normocephalic - Eye Eye exam: Present: PERRL, conjuntiva pink, sclera anicteric Pupils: Present: PERRL - Neck Neck exam general surgery: Present: supple, trachea midline. Absent: lymphadenopathy - Respiratory Respiratory exam: Present: CTAB. Absent: accessory muscle use, rales, rhonchi, wheezes - Cardiovascular Cardiovascular exam: Present: RRR, +S1, +S2. Absent: diastolic murmur, gallop, rubs, systolic murmur - GI/Abdominal GI/Abdominal exam: Present: normal bowel sounds, soft, no peritoneal signs. Absent: distended, tenderness - Extremities Exam Extremities exam: Present: warm, radial pulses palpable and symmetrical. Absent : calf tenderness, cyanotic, pedal edema - Neurological Exam Neurological exam: Present: CN II-XII intact, oriented X3, no focal deficits. Absent: pronater drift, facial droop, speech deficit - Skin Skin exam: Present: dry, intact Internal Medicine: Result - Labs CBC & Chem 7: 03/01/18 01:15 03/01/18 01:15 Labs: Short CBC 03/01/18 Range/Units 01:15 WBC 7.6 (4.3-11.1) K/mcL Hgb 10.1 L (11.5-15.4) g/dL Hct 32.9 L (35.3-44.9) % Plt Count 83 L (140-400) K/mcL Neutrophils # 5.5 (1.6-8.9) K/mcL BMP 03/01/18 01:15 Sodium 141 Potassium 5.2 H Chloride 113 H Carbon Dioxide 24 BUN 26 H Creatinine 1.15 Glucose 118 H Calcium 8.1 L Liver Function 03/01/18 Range/Units 01:15 Total Bilirubin 0.3 (0.3-1.0) mg/dL Direct Bilirubin 0.1 (0.0-0.2) mg/dL AST 471 H (13-39) Units/L ALT > 500 H (7-52) Units/L Alkaline Phosphatase 58 (34-104) Units/L Albumin 3.4 L (3.5-5.7) g/dL Urine 03/01/18 Range/Units 07:30 Urine Color Yellow (Yellow) Urine Clarity Clear (Clear) Urine pH 6.0 (5.0-8.0) pH Units Ur Specific [place] 1.014 (1.010-1.025) Urine Protein Trace (Neg-Trace) mg/dL Urine Glucose (UA) Normal (Normal) mg/dL - Impressions Impressions Retroperitoneum Ultrasound 02/28/18 12:41 IMPRESSION: Unremarkable ultrasound of the kidneys and urinary bladder. D/ / Alexei Tse MD / Alexei Tse MD Interpreting Provider: Alexei Tse MD Consult Discharge Plan - Plan Referrals: Vinicius Jones MD [Primary Care Provider] -
[2018-03-01] MEDS ORDERED: Ipratropium/Albuterol Neb 3 ML IH SCH (16:45)
--- NOTE | 2018-03-01 16:59 | Electrocardiograph Report ---
[place] [id number] Test Date: 2018-02-27 Pat Name: Toña Gabriel Department: [id number] Room: [facility] Gender: F Neurosurgery Spine Physician: [id number] : 1940 Requested By: Maris Woodard Order Number: [id number] Reading MD: Windy Alicia Measurements Intervals Tilly Rate: 50 P: 91 IN: 139 QRS: 16 QRSD: 122 T: 86 QT: 484 QTc: 459 Interpretive Statements SINUS BRADYCARDIA LEFT BUNDLE BRANCH BLOCK Electronically Signed On 03-01-2018 16:57:34 EDT by Windy Alicia
[2018-03-01 17:50] LABS: ABG Base Excess -1 mEq/L (-2 to 3); ABG HCO3 27 mEq/L (21-27); ABG Oxygen Saturation 90 % (95-98); ABG PCO2 61 mmHg (35-45); ABG PH 7.26 pH Units (7.32-7.45); ABG PO2 68 mmHg (85-104); ABG TCO2 29 mEq/L (20-26)
[2018-03-01] MEDS ORDERED: Levofloxacin 750 MG/150 ML 750 MG/150 ML BAG IVPB SCH (18:00)
[2018-03-01] MEDS ORDERED: Isovue-370 500 ML INFUS..BTL IV ONE (18:04)
[2018-03-01] MEDS ORDERED: 0.9 % Sodium Chloride 1,000 ML IVC SCH (18:15)
[2018-03-01 19:17] LABS: Protein/Creatinine Ratio,Urine 0.31 mg/mg (0.00-0.20)
[2018-03-01] MEDS: Budesonide/Formoterol 160/4.5 MDI IH SCH (20:55)
[2018-03-01] MEDS: Ipratropium/Albuterol Neb 3 ML IH SCH (20:55)
[2018-03-02] MEDS: Ipratropium/Albuterol Neb 3 ML IH SCH ×6 (00:23→20:26)
[2018-03-02 00:28] LABS: ABG Base Excess 2 mEq/L (-2 to 3); ABG HCO3 28 mEq/L (21-27); ABG Oxygen Saturation 93 % (95-98); ABG PCO2 52 mmHg (35-45); ABG PH 7.34 pH Units (7.32-7.45); ABG PO2 71 mmHg (85-104); ABG TCO2 30 mEq/L (20-26)
[2018-03-02 01:20] LABS: Basophils % 0.5 %; Eosinophils # 0.1 K/mcL (0.0-0.6); Eosinophils % 1.7 %; Hematocrit 32.5 % (35.3-44.9); Hemoglobin 9.9 g/dL (11.5-15.4); Immature Platelets 3.4 % (1.1-6.1); Lymphocytes # 1.3 K/mcL (0.6-4.6); Lymphocytes % 16.3 %; Mean Corpuscular HGB Conc 30.5 g/dL (31.6-35.5); Mean Corpuscular Hemoglobin 31.2 pg (28.0-33.3); Mean Corpuscular Volume 102.5 fL (83.0-100.0); Mean Platelet Volume 10.2 fL (9.4-12.4); Monocytes # 0.6 K/mcL (0.0-1.3); Monocytes % 7.9 %; Neutrophils # 5.7 K/mcL (1.6-8.9); Nucleated Red Blood Cells 0.4 /100 WBC (0); Platelet Count 104 K/mcL (140-400); Red Blood Count 3.17 M/mcL (3.82-4.97); Red Cell Distribution Width 13.1 % (11.5-14.5); Segmented Neutrophils % 72.6 %
[2018-03-02 01:37] LABS: BUN/Creatinine Ratio 16 (6-26); Blood Urea Nitrogen 14 mg/dL (8-23); Calcium 8.3 mg/dL (8.6-10.3); Carbon Dioxide 28 mEq/L (23-29); Chloride 107 mEq/L (98-107); Glucose 97 mg/dL (70-105); Osmolality,Calculated 284 (280-300); Potassium 5.1 mEq/L (3.5-5.1); Sodium 137 mEq/L (136-145); eGFR For African Americans > 60 (> 60); eGFR For Non-African Americans > 60 (> 60)
[2018-03-02 01:40] LABS: Alanine Aminotransferase > 500 Units/L (7-52); Albumin 3.4 g/dL (3.5-5.7); Albumin/Globulin Ratio 1.6 (1.1-2.2); Alkaline Phosphatase 60 Units/L (34-104); Aspartate Amino Transferase 249 Units/L (13-39); Bilirubin,Direct 0.1 mg/dL (0.0-0.2); Bilirubin,Indirect 0.2 mg/dL (0.0-1.2); Bilirubin,Total 0.3 mg/dL (0.3-1.0); Globulin 2.1 g/dL (2.4-3.5); Total Protein 5.5 g/dL (6.4-8.9)
[2018-03-02 02:07] LABS: Folate > 22.3 ng/mL (3.0-16.0); Vitamin B12 > 1500 pg/mL (250-1100)
[2018-03-02 02:12] LABS: Phosphorous 1.3 mg/dL (2.7-4.5)
[2018-03-02] MEDS: *HR* Heparin 5,000 UNIT/ML VIAL SQ SCH ×2 (05:27→16:26)
[2018-03-02] MEDS: ALPRAZolam 0.5 MG TABLET PO SCH ×3 (08:40→19:33)
[2018-03-02] MEDS: Multivit/Ca/Min/Fe/FA 1 TAB TABLET PO SCH (08:40)
[2018-03-02] MEDS: traMADol 50 MG TABLET PO PRN (08:40)
[2018-03-02] MEDS: Cholecalciferol (D-3) 1,000 UNIT TABLET PO SCH (08:40)
[2018-03-02] MEDS: Cyanocobalamin (B-12) 1,000 MCG TABLET PO SCH (08:40)
--- NOTE | 2018-03-02 09:58 | Nephrology Progress Note ---
Date of Encounter: 03/02/18 Time of Encounter: 09:58 - Assessment and Plan (1) Acute kidney failure Current Visit: Yes Status: Acute Patient renal function has returned to normal. Etiology was secondary to shock. Patient's blood pressure is elevated. Will titrate her atenolol to 50mg daily. Will sign off. Please reconsult if further assistance is needed. Outpatient follow-up per her PCP. Qualifiers: Acute renal failure type: unspecified Qualified Code(s): N17.9 - Acute kidney failure, unspecified (2) Shock Current Visit: Yes Status: Acute Resolved. (3) Abnormal liver function tests Current Visit: Yes Status: Acute Likely secondary to shock liver. Her AST continues to improve. (4) Hypertension Current Visit: Yes Status: Acute Patient's hypertension is returning. Agree with titrating her antihypertensive regimen. I increased her her atenolol to 50mg po daily today and this may need to be titrated upward if her blood pressure remains elevated. discontinue spironolactone as her potassium is on the high side. Qualifiers: Qualified Code(s): I10 - Essential (primary) hypertension (5) Anemia Current Visit: Yes Status: Acute Iron deficiency anemia. She needs an outpatient w/u if not already performed. Started ferrous sulfate which should be continued on an outpatient basis. Qualifiers: Qualified Code(s): D64.9 - Anemia, unspecified Subjective Principal diagnosis: DAYO Interval history: Ms. Gabriel is a 77 yo woman with DAYO. She feels better today. She still feels weak. No other new complaints. Objective - Vital Signs Vital signs: Vital Signs Temp Pulse Resp BP Pulse Ox 03/02/18 07:51 98.8 F 78 18 159/97 95 03/02/18 04:31 97.7 F 83 18 135/65 98 03/02/18 03:27 20 95 03/02/18 02:02 98.8 F 85 16 145/72 95 03/02/18 00:29 20 99 03/02/18 00:23 18 94 03/01/18 21:20 15 97 03/01/18 20:55 18 97 03/01/18 20:50 99.6 F 85 16 161/76 97 03/01/18 16:27 98.1 F 80 16 141/83 93 Intake and Output 03/01/18 03/02/18 03/02/18 23:59 07:59 15:59 Intake Total 150 / 150 Balance 150 / 150 Intake: IV Fluids 150 / 150 Levaquin Premix 750mg/150 mL 150 / 150 750 mg In 150 ml @ 100 mls/hr IVPB Q48H SHAYLA Rx#:[id number] Other: # Voids 1 1 - General Appearance General appearance: Present: well-developed, well-nourished Neurologic: Present: alert and oriented x3 Psychiatric: Present: mood/affect appropriate - Lab 03/02/18 00:23 03/02/18 00:23 Most recent lab results ABG pH 7.34 pH Units (7.32-7.45) 03/02/18 00:22 ABG pCO2 52 mmHg (35-45) H 03/02/18 00:22 ABG pO2 71 mmHg (85-104) L 03/02/18 00:22 ABG HCO3 28 mEq/L (21-27) H 03/02/18 00:22 ABG O2 Saturation 93 % (95-98) L 03/02/18 00:22 Calcium 8.3 mg/dL (8.6-10.3) L 03/02/18 00:23 Phosphorus 1.3 mg/dL (2.7-4.5) L 03/02/18 00:23 Magnesium 2.1 mg/dL (1.6-2.6) 03/01/18 01:15 Urine Creatinine 194 mg/dL 02/27/18 16:12 Urine Total Protein 61 mg/dL (1-14) H 02/27/18 16:12 Consult Discharge Plan - Plan Referrals: Vinicius Jones MD [Primary Care Provider] -
[2018-03-02] MEDS: Budesonide/Formoterol 160/4.5 MDI IH SCH ×2 (10:02→20:26)
--- NOTE | 2018-03-02 10:23 | Pulmonology Consult Note ---
Date of Encounter: 03/02/18 Time of Encounter: 10:23 Assessment and Plan (1) Acute respiratory failure with hypoxia and hypercapnia Current Visit: Yes Status: Acute In conclusion this 77-year-old female with a past medical history tobacco abuse who presented with bradycardia acute kidney injury and acutely liver injury thought related to shock overall clinical course is improving except patient was noted to have increasing work of breathing ABG was obtained which was notable for hypoxic hypercarbic respiratory failure which responded to BiPAP treatment. CTA was performed which was negative for evidence of infectious process or acute filling defect however it was notable for bilateral pleural effusions Suspect this is multifactorial including likely mild COPD exacerbation hydrostatic pulmonary edema and VQ mismatching from atelectasis She is no longer requiring BiPAP therapy continue to wean nasal cannula to keep saturation around 92% and otherwise is in no acute respiratory distress Encourage incentive spirometry out of bed to chair and early ambulation to mitigate the effects of VQ mismatching (2) COPD with acute exacerbation Current Visit: Yes Status: Acute We transitioned to oral prednisone to complete 5 day burst Would encourage use of bronchodilators scheduled every 6 hours Patient could be discharged on a long acting muscarinic antagonist such as Spiriva 18.5 g daily with a short acting beta agonist to be used as needed Outpatient pulmonary follow-up with pulmonary function testing (3) (HFpEF) heart failure with preserved ejection fraction Current Visit: Yes Status: Acute Patient's last echocardiogram was notable for eyes total dysfunction and BNP is elevated she received significant amount of volume during this admission and in general I would advise against further continuation of IV fluids infection would likely benefit from diuresis over the next 24 hours with close monitoring of her urine output and serum creatinine/electrolytes Optimizing blood pressure control and heart rate control at the discretion of the primary medicine service (4) Abnormal liver function tests Current Visit: Yes Status: Acute Per GI recommendations (5) Acute kidney failure Current Visit: Yes Status: Acute Per nephrology recommendations Qualifiers: Acute renal failure type: unspecified Qualified Code(s): N17.9 - Acute kidney failure, unspecified (6) Sinus bradycardia Current Visit: Yes Status: Acute This is resolved may been related to beta mauricio effect Pulmonary we will sign off please call with any questions History of Present Illness Consult date: 03/02/18 Requesting physician: Angel Hudson Reason for consult: hypoxemia Chief complaint: Difficulty in Breathing History of present illness: This is a pleasant 77-year-old woman with a remote smoking history and of hypertension, hypothyroidism, arthritis and high cholesterol. who presented to ED with lethargy and N/V was found to have symptomatic bradycardia and elevated liver enzymes and DAYO. 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 Fortunately patient had developed respiratory distress ABG was obtained which is notable acute hypoxic hypercarbic respiratory failure she was on BiPAP but has since been weaned down to nasal cannula. Pulmonary was consulted to evaluate the patient for respiratory failure.. The patient does not carry any skin diagnosis of COPD she quit smoking about a decade ago started smoking in her late 20s and was at most a pack a day smoker. She denies any significant shortness of breath at baseline. Today she denies any cough sputum production or wheezing. And she says overall her breathing is much improved. 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 Past Med Surg Social Fam HX - Past Medical History Medical history: arthritis, hyperlipidemia, hypertension, osteoporosis, thyroid disease Psychiatric history: anxiety - Past Surgical History Surgical History: appendectomy, cataract, hysterectomy, orthopedic, other - Social History Smoking Status: Former smoker Smokeless Tobacco Status: No Alcohol use: none Drug use: none - Family History Father Name: Ramiro Zhao Family Member Ethnicity: Non- Living Status: Age at : 55 Cause of : [place] Hx Family Cardiac Disorders: Yes Hx Family Respiratory Disorders: No Hx Family Cancer: No Hx Family GI Disorders: No Hx Family Genitourinary Disorders: No Hx Family Endocrine Disorder: No Hx Family Musculoskeletal Disorders: No Hx Family Neuromuscular Disorders: No Hx Family Neurologic Disorders: No Hx Family HEENT Disorders: No Hx Family Autoimmune Disorders: No Hx Family Reproductive Disorders: No Hx Family Psychosocial Disorders: No Hx Family Medical Disorders: No Medications and Allergies ALPRAZolam [Xanax 0.5 MG Tablet] 0.5 mg PO HS 07/10/17 [History] Acetaminophen [Tylenol] 500 mg PO Q6HR PRN 07/10/17 [History] Atenolol [Tenormin] 100 mg PO DAILY 07/10/17 [History] Cholecalciferol (D-3) [Vitamin D] 1,000 unit PO DAILY 07/10/17 [History] Cyanocobalamin (Vitamin B-12) [Vitamin B-12] 1,000 mcg SL DAILY 07/10/17 [ History] Levothyroxine [Synthroid] 75 mcg PO DAILY 07/10/17 [History] Losartan Potassium [Cozaar] 100 mg PO DAILY 07/10/17 [History] Lovastatin [Mevacor] 20 mg PO HS 07/10/17 [History] Meloxicam [Meloxicam] 15 mg PO DAILY 07/10/17 [History] Multivitamin [One Daily Multivitamin] 1 each PO DAILY 07/10/17 [History] Tramadol HCl [Ultram] 50 mg PO TID 07/10/17 [History] ALPRAZolam [Xanax 0.5 MG Tablet] 0.25 mg PO BID 02/27/18 [History] Alendronate Sodium [Fosamax] 70 mg PO MO 02/27/18 [History] Spironolactone [Aldactone] 25 mg PO DAILY 02/27/18 [History] 3 Allergy/AdvReac Type Severity Reaction Status Date / Time amlodipine AdvReac Nausea/WEAK Verified 02/27/18 16:14 All Systems: The remainder of the systems were reviewed and are negative Physical Examination Vital Signs: Vital Signs, Last 4 Hours Temp Pulse Resp BP Pulse Ox 03/02/18 07:51 98.8 F 78 18 159/97 95 General appearance: no acute distress Eyes: nonicteric ENT: oropharynx moist Auscultation: bilateral: rales Cardiovascular: regular rate and rhythm Gastrointestinal: normoactive bowel sounds, soft, non-tender Integumentary: normal Extremities: edema Musculoskeletal: no deformities normal mental status, non-focal exam mood appropriate Results - Laboratory Findings CBC and BMP: 03/02/18 00:23 03/02/18 00:23 ABG ABG pH 7.34 pH Units (7.32-7.45) 03/02/18 00:22 ABG pCO2 52 mmHg (35-45) H 03/02/18 00:22 ABG pO2 71 mmHg (85-104) L 03/02/18 00:22 ABG O2 Saturation 93 % (95-98) L 03/02/18 00:22 Abnormal lab findings: Abnormal lab results RBC 3.17 M/mcL (3.82-4.97) L 03/02/18 00:23 Hgb 9.9 g/dL (11.5-15.4) L 03/02/18 00:23 Hct 32.5 % (35.3-44.9) L 03/02/18 00:23 MCV 102.5 fL (83.0-100.0) H 03/02/18 00:23 MCHC 30.5 g/dL (31.6-35.5) L 03/02/18 00:23 Plt Count 104 K/mcL (140-400) L 03/02/18 00:23 Nucleated RBCs/100 WBC 0.4 /100 WBC (0) H 03/02/18 00:23 ABG pCO2 52 mmHg (35-45) H 03/02/18 00:22 ABG pO2 71 mmHg (85-104) L 03/02/18 00:22 ABG HCO3 28 mEq/L (21-27) H 03/02/18 00:22 ABG Total CO2 30 mEq/L (20-26) H 03/02/18 00:22 ABG O2 Saturation 93 % (95-98) L 03/02/18 00:22 Calcium 8.3 mg/dL (8.6-10.3) L 03/02/18 00:23 Phosphorus 1.3 mg/dL (2.7-4.5) L 03/02/18 00:23 Iron 29 mcg/dL (50-170) L 03/02/18 00:23 % Saturation 9 % (15-50) L 03/02/18 00:23 Ferritin 756 ng/ml (10-120) H 03/02/18 00:23 AST 249 Units/L (13-39) H 03/02/18 00:23 ALT > 500 Units/L (7-52) H 03/02/18 00:23 Troponin I 0.04 ng/mL (< 0.04) H* 02/28/18 09:06 B-Natriuretic Peptide 714 pg/mL (Less than 100) H 03/01/18 16:56 Serum Total Protein 5.5 g/dL (6.4-8.9) L 03/02/18 00:23 Albumin 3.4 g/dL (3.5-5.7) L 03/02/18 00:23 Globulin 2.1 g/dL (2.4-3.5) L 03/02/18 00:23 Triglycerides 166 mg/dL (< 150) H 02/28/18 02:21 VLDL Cholesterol, Calc 33 mg/dL (< 31) H 02/28/18 02:21 Vitamin B12 > 1500 pg/mL (250-1100) H 03/02/18 00:23 Folate > 22.3 ng/mL (3.0-16.0) H 03/02/18 00:23 Urine Blood Small (Negative) H 03/01/18 07:30 Ur Leukocyte Esterase Trace (Negative) H 03/01/18 07:30 Ur Squamous Epith Cells Moderate per lpf (None-Few) H 03/01/18 07:30 Ur Culture Indicated? YES (NO) A 03/01/18 07:30 Microalb/Creat Ratio 90 mcg/mg (Less than 30) H 02/27/18 16:12 Protein/Creatinin Ratio 0.31 mg/mg (0.00-0.20) H 02/27/18 16:12 Urine Total Protein 61 mg/dL (1-14) H 02/27/18 16:12 Acetaminophen < 10 mcg/mL (10-20) L 02/28/18 09:06 - Microbiology Findings Microbiology Findings: Microbiology, Last 48 Hours 03/01/18 07:30 Urine Culture - Final Urine,Clean Catch Strep agalactiae - (Group B) 02/27/18 20:42 Blood Culture - Preliminary Peripheral Venipuncture No growth. 02/27/18 20:45 Blood Culture - Preliminary Peripheral Venipuncture No growth. - Diagnostic Findings Chest x-ray: report reviewed, image reviewed CT scan - chest: report reviewed, image reviewed - Clinical Findings Intake & Output: Intake & Output 03/01/18 03/02/18 03/02/18 23:59 07:59 15:59 Intake Total 150 / 150 Balance 150 / 150 Consult Discharge Plan - Plan Referrals: Vinicius Jones MD [Primary Care Provider] -
--- NOTE | 2018-03-02 12:16 | Internal Med Progress Note ---
Date of Encounter: 03/02/18 Time of Encounter: 12:00 - Assessment and plan (1) Acute respiratory failure with hypoxia and hypercapnia Current Visit: Yes Status: Acute Assessment and plan: Likely 2/2 to severe COPD exacerbation. ABG showed significant CO2 retention. Started on nebs, steroids and antibiotics. On BiPAP as needed. Pulmonary consulted (2) Abnormal liver function tests Current Visit: Yes Status: Acute Assessment and plan: LFTs with shock liver Likely 2/2 to hypoperfusion and severe dehydration. Patient also admits to taking up to 2000mg of tylenol per day. Tylenol levs WNL. CT abdomen showed gall stone but no biliary dilatation. continue IV fluids. mRCP showed no evidence of biliary dilatation. LFTS trending down with IV fluids. GI following. Etiology of dehydration may be 2/2 to spironolactone. Will hold on discharge (3) Leukocytosis, unspecified Current Visit: Yes Status: Acute Assessment and plan: Likley 2/2 to dehydration. Resolved with IV fluids Qualifiers: Leukocytosis type: unspecified Qualified Code(s): D72.829 - Elevated white blood cell count, unspecified (4) Generalized weakness Current Visit: Yes Status: Acute Assessment and plan: Continue IV fluid resuscitation. Resolving (5) Nausea & vomiting Current Visit: Yes Status: Acute Assessment and plan: Zofran PRN Qualifiers: Vomiting type: unspecified Vomiting Intractability: unspecified Qualified Code(s): R11.2 - Nausea with vomiting, unspecified (6) Acute kidney failure Current Visit: Yes Status: Acute Assessment and plan: CReatinine trending down. Continue fluids. Avoid nephrotoxic meds. DAYO resolved Qualifiers: Acute renal failure type: unspecified Qualified Code(s): N17.9 - Acute kidney failure, unspecified (7) Sinus bradycardia Current Visit: Yes Status: Acute Assessment and plan: Atenolol has been started today low dose at 25mg daily. Titrated up to 50mg. Will monitor (8) DVT prophylaxis Current Visit: Yes Status: Acute Assessment and plan: Heparin sc q 12 - Time Spent With Patient Total time spent is greater than 50% in coordination of care (as documented) at patient's floor/unit and/or counseling patient: - Subjective Interval history: No acute events overnight - Constitutional Vitals: Temp Pulse Resp BP Pulse Ox 97.8 F 76 16 158/80 98 04/29/18 11:08 03/02/18 11:08 03/02/18 11:08 03/02/18 11:08 03/02/18 11:08 General appearance: Present: pleasant - Head Head exam: Present: atraumatic, normocephalic - Eye Eye exam: Present: PERRL, conjuntiva pink, sclera anicteric Pupils: Present: PERRL - Neck Neck exam general surgery: Present: supple, trachea midline. Absent: lymphadenopathy - Respiratory Respiratory exam: Present: CTAB. Absent: accessory muscle use, rales, rhonchi, wheezes Additional comments: chest tightness - Cardiovascular Cardiovascular exam: Present: RRR, +S1, +S2. Absent: diastolic murmur, gallop, rubs, systolic murmur - GI/Abdominal GI/Abdominal exam: Present: normal bowel sounds, soft, no peritoneal signs. Absent: distended, tenderness - Extremities Exam Extremities exam: Present: warm, radial pulses palpable and symmetrical. Absent : calf tenderness, cyanotic, pedal edema - Neurological Exam Neurological exam: Present: CN II-XII intact, oriented X3, no focal deficits. Absent: pronater drift, facial droop, speech deficit - Skin Skin exam: Present: dry, intact Internal Medicine: Result - Labs CBC & Chem 7: 03/02/18 00:23 03/02/18 00:23 Labs: Short CBC 03/02/18 Range/Units 00:23 WBC 7.8 (4.3-11.1) K/mcL Hgb 9.9 L (11.5-15.4) g/dL Hct 32.5 L (35.3-44.9) % Plt Count 104 L (140-400) K/mcL Neutrophils # 5.7 (1.6-8.9) K/mcL BMP 03/02/18 00:23 Sodium 137 Potassium 5.1 Chloride 107 Carbon Dioxide 28 BUN 14 Creatinine 0.86 Glucose 97 Calcium 8.3 L Liver Function 03/02/18 Range/Units 00:23 Total Bilirubin 0.3 (0.3-1.0) mg/dL Direct Bilirubin 0.1 (0.0-0.2) mg/dL AST 249 H (13-39) Units/L ALT > 500 H (7-52) Units/L Alkaline Phosphatase 60 (34-104) Units/L Albumin 3.4 L (3.5-5.7) g/dL - ABG Interpretation ABG results: ABG ABG pH 7.34 pH Units (7.32-7.45) 03/02/18 00:22 ABG pCO2 52 mmHg (35-45) H 03/02/18 00:22 ABG pO2 71 mmHg (85-104) L 03/02/18 00:22 ABG O2 Saturation 93 % (95-98) L 03/02/18 00:22 - Impressions Impressions Chest X-Ray 03/01/18 16:31 IMPRESSION: No acute process. D/ / David Jones MD / David Jones MD Interpreting Provider: David Jones MD Chest CTA 03/01/18 18:04 IMPRESSION: 1. No definite scan evidence for pulmonary embolus. 2. Bilateral pleural effusions. 3. Coronary artery disease. D/ / Kobe Sheikh MD / Kobe Sheikh MD Interpreting Provider: Kobe Sheikh MD Consult Discharge Plan - Plan Referrals: Vinicius Jones MD [Primary Care Provider] -
[2018-03-02] MEDS ORDERED: methylPREDNISolone 125 MG/2 ML VIAL IVP SCH (18:02)
[2018-03-03] MEDS: Ipratropium/Albuterol Neb 3 ML IH SCH ×4 (00:30→11:20)
[2018-03-03 01:29] LABS: Basophils % 0.2 %; Eosinophils % 0.2 %; Hematocrit 33.6 % (35.3-44.9); Hemoglobin 10.3 g/dL (11.5-15.4); Immature Granulocytes % 0.7 % (0-4); Lymphocytes # 0.7 K/mcL (0.6-4.6); Lymphocytes % 16.1 %; Mean Corpuscular HGB Conc 30.7 g/dL (31.6-35.5); Mean Corpuscular Hemoglobin 30.7 pg (28.0-33.3); Mean Corpuscular Volume 100.3 fL (83.0-100.0); Mean Platelet Volume 9.7 fL (9.4-12.4); Monocytes # 0.1 K/mcL (0.0-1.3); Monocytes % 1.4 %; Neutrophils # 3.5 K/mcL (1.6-8.9); Platelet Count 102 K/mcL (140-400); Red Blood Count 3.35 M/mcL (3.82-4.97); Red Cell Distribution Width 12.8 % (11.5-14.5); Segmented Neutrophils % 81.4 %
[2018-03-03 01:53] LABS: BUN/Creatinine Ratio 13 (6-26); Blood Urea Nitrogen 11 mg/dL (8-23); Calcium 8.9 mg/dL (8.6-10.3); Carbon Dioxide 30 mEq/L (23-29); Chloride 105 mEq/L (98-107); Glucose 171 mg/dL (70-105); Osmolality,Calculated 293 (280-300); Potassium 4.8 mEq/L (3.5-5.1); Sodium 140 mEq/L (136-145); eGFR For African Americans > 60 (> 60); eGFR For Non-African Americans > 60 (> 60)
[2018-03-03 01:57] LABS: Alanine Aminotransferase > 500 Units/L (7-52); Albumin 3.4 g/dL (3.5-5.7); Albumin/Globulin Ratio 1.4 (1.1-2.2); Alkaline Phosphatase 59 Units/L (34-104); Aspartate Amino Transferase 115 Units/L (13-39); Bilirubin,Direct 0.1 mg/dL (0.0-0.2); Bilirubin,Indirect 0.2 mg/dL (0.0-1.2); Bilirubin,Total 0.3 mg/dL (0.3-1.0); Globulin 2.5 g/dL (2.4-3.5); Total Protein 5.9 g/dL (6.4-8.9)
[2018-03-03] MEDS: *HR* Heparin 5,000 UNIT/ML VIAL SQ SCH (05:29)
[2018-03-03] MEDS: traMADol 50 MG TABLET PO PRN (05:29)
[2018-03-03 07:26] VITALS: BP 165/84
[2018-03-03] MEDS: Multivit/Ca/Min/Fe/FA 1 TAB TABLET PO SCH (07:33)
[2018-03-03] MEDS: Cholecalciferol (D-3) 1,000 UNIT TABLET PO SCH (07:34)
[2018-03-03] MEDS: ALPRAZolam 0.5 MG TABLET PO SCH ×2 (07:34)
[2018-03-03] MEDS ORDERED: predniSONE 20 MG TABLET PO SCH (09:00)
--- NOTE | 2018-03-03 10:55 | Discharge Summary ---
- NOTES TO OUTPATIENT PROVIDER Notes to Outpatient Provider: follow up with PCP and pulmonary for PFTs Orders not resulted at time of discharge: Pending orders 02/27/18 20:42 Culture,Blood [BC] Routine 02/28/18 09:06 ANATOLY IgG JUDE rflx IFA Routine Anti-Microsomal Antibody,(TPO) Routine Mitochondrial M2 Antibody, IgG Routine 03/02/18 00:23 Vitamin D 25 Hydroxy AM 0400 03/04/18 04:00 Basic Metabolic Panel AM 0400 CBC [Complete Blood Count] [HEME] AM 0400 LFTs [Hepatic Panel] AM 04003/05/18 04:00 Basic Metabolic Panel AM 0400 CBC [Complete Blood Count] [HEME] AM 04003/06/18 04:00 Basic Metabolic Panel AM 0400 CBC [Complete Blood Count] [HEME] AM 0400 Date of Encounter: 03/03/18 Time of Encounter: 10:50 - Discharge Diagnosis (1) Acute respiratory failure with hypoxia and hypercapnia Priority: Primary Status: Acute Assessment and Plan: Likely 2/2 to severe COPD exacerbation. ABG showed significant CO2 retention. Started on nebs, steroids and antibiotics. On BiPAP as needed. steroids have been tapered to po. Will plan for discharge on steroid taper, short acting inhalers and spriva. Plan for outpatient follow up with pulmonary for pulmonary function testing (2) Abnormal liver function tests Priority: Secondary Status: Acute Assessment and Plan: LFTs with shock liver Likely 2/2 to hypoperfusion and severe dehydration. Patient also admits to taking up to 2000mg of tylenol per day. Tylenol levs WNL. CT abdomen showed gall stone but no biliary dilatation. continue IV fluids. mRCP showed no evidence of biliary dilatation. LFTS have trended down with IV fluids. Etiology of dehydration may be 2/2 to spironolactone. Will hold on discharge (3) Leukocytosis, unspecified Priority: Secondary Status: Acute Assessment and Plan: Arlene 2/2 to dehydration. Resolved with IV fluids Qualifiers: Leukocytosis type: unspecified Qualified Code(s): D72.829 - Elevated white blood cell count, unspecified (4) Generalized weakness Priority: Secondary Status: Acute Assessment and Plan: Continue IV fluid resuscitation. Resolving (5) Nausea & vomiting Priority: Secondary Status: Acute Assessment and Plan: Zofran PRN Qualifiers: Vomiting type: unspecified Vomiting Intractability: unspecified Qualified Code(s): R11.2 - Nausea with vomiting, unspecified (6) Acute kidney failure Priority: Secondary Status: Acute Assessment and Plan: CReatinine trending down. Continue fluids. Avoid nephrotoxic meds. DAYO resolved Qualifiers: Acute renal failure type: unspecified Qualified Code(s): N17.9 - Acute kidney failure, unspecified (7) Sinus bradycardia Priority: Secondary Status: Acute Assessment and Plan: Atenolol has been started today low dose at 25mg daily. Titrated up to 50mg. Will discharge on 50mg of atenolol (8) DVT prophylaxis Priority: Secondary Status: Acute Hospital course: Ms. Gabriel is a 77 year old female - Time Spent with Patient Total time spent providing and/or coordinating discharge services: - Discharge Medications Prescriptions: Ipratropium/Albuterol Sulfate [Combivent Respimat Inhal [place]] 4 gm IH Q6HR PRN #60 aer.w.adap PRN Reason: Shortness Of Breath Atenolol [Tenormin] 50 mg PO DAILY #30 tablet Ferrous Sulfate 325 mg PO DAILY@0800 #60 tablet levoFLOXacin [Levaquin] 750 mg PO DAILY #3 tablet predniSONE [PredniSONE] 40 mg PO DAILY #5 tablet Tiotropium [Spiriva] 18 mcg IH 0700 #60 capsule Home Medications: ALPRAZolam [Xanax 0.5 MG Tablet] 0.5 mg PO HS 07/10/17 [History] Acetaminophen [Tylenol] 500 mg PO Q6HR PRN 07/10/17 [History] Cholecalciferol (D-3) [Vitamin D] 1,000 unit PO DAILY 07/10/17 [History] Cyanocobalamin (Vitamin B-12) [Vitamin B-12] 1,000 mcg SL DAILY 07/10/17 [ History] Levothyroxine [Synthroid] 75 mcg PO DAILY 07/10/17 [History] Losartan Potassium [Cozaar] 100 mg PO DAILY 07/10/17 [History] Lovastatin [Mevacor] 20 mg PO HS 07/10/17 [History] Meloxicam 15 mg PO DAILY 07/10/17 [History] Multivitamin [One Daily Multivitamin] 1 each PO DAILY 07/10/17 [History] Tramadol HCl [Ultram] 50 mg PO TID 07/10/17 [History] ALPRAZolam [Xanax 0.5 MG Tablet] 0.25 mg PO BID 02/27/18 [History] Alendronate Sodium [Fosamax] 70 mg PO MO 02/27/18 [History] Atenolol [Tenormin] 50 mg PO DAILY #30 tablet 03/03/18 [Rx] Ferrous Sulfate 325 mg PO DAILY@0800 #60 tablet 03/03/18 [Rx] Ipratropium/Albuterol Sulfate [Combivent Respimat Inhal [place]] 4 gm IH Q6HR PRN #60 aer.w.adap 03/03/18 [Rx] Tiotropium [Spiriva] 18 mcg IH 0700 #60 capsule 03/03/18 [Rx] levoFLOXacin [Levaquin] 750 mg PO DAILY #3 tablet 03/03/18 [Rx] predniSONE [PredniSONE] 40 mg PO DAILY #5 tablet 03/03/18 [Rx] Allergies/Adverse Reactions: 3 Allergy/AdvReac Type Severity Reaction Status Date / Time amlodipine AdvReac Nausea/WEAK Verified 02/27/18 16:14 Date of admission: 02/27/18 20:19 Primary care physician: Vinicius Jones MD Consults: 02/27/18 20:21 Consult to Physician [CONS] Routine Consulting Provider: Terrell Sage Reason for Consult: dayo Call Completed: No 02/27/18 20:23 Consult to Gastroenterology [CONS] Routine Consulting Provider: [facility] [place] Reason for Consult: elevated liver enzymes and abn liver ultrasound Call Completed: No 03/02/18 10:07 Consult to Pulmonology [CONS] Routine Consulting Provider: [facility] Reason for Consult: acute hypercapneic respiratory failure 2/2 to COPD exacerbation Call Completed: Yes 03/02/18 12:11 Consult to Physical Therapy [CONS] Routine Comment: Evaluate, develop and implement POC Reason for Consult: weakness Does patient have active BEDREST order?: No Is patient medically & hemodynamically stable?: Yes - Constitutional Vitals: Temp Pulse Resp BP Pulse Ox 98.4 F 93 15 165/84 97 03/03/18 07:25 03/03/18 07:25 03/03/18 07:25 03/03/18 07:25 03/03/18 08:08 General appearance: Present: pleasant - Patient Status Disposition: Home, Self-Care Condition: Good - Discharge Instructions Follow Up With: Vinicius Jones MD [Primary Care Provider] - Additional Instructions: Follow-up appointments: If there is not an appointment listed below, please call your physician and schedule a follow-up appointment. If you have congestive heart failure and your symptoms return, make an appointment with your physician. Medication List: Carry an up to date list of medications you are taking at all time. We have given you an updated medication list including any new medications that you have been prescribed. Please provide that list to your primary provider Symptoms: If your condition changes or you experience any of the following symptoms, notify your physician immediately: Unusual or worsening pain, fever, persistent nausea and vomiting, bleeding, increase in swelling (especially in your legs), sudden weight gain, extreme dizziness, chest pain, increased drainage or redness from a wound or incision. Go to the emergency department if you experience a problem with breathing. Weights: If you have a history of swelling or shortness of breath, weigh yourself daily and notify your physician if you have a weight gain of two or more pounds in one day or 5 or more pounds in a week. If you experience any of the warning signs for stroke: Sudden numbness or weakness of the face, arm or leg; especially on one side of the body, sudden confusion, trouble speaking or understanding, sudden trouble seeing in one or both eyes, sudden trouble walking, dizziness, loss of balance or coordination, sudden sever headache with no cause; Call 911 or go to the emergency room. Stroke is a medical emergency. Some risk factors for stroke: Age, cigarette smoking, diabetes, excessive alcohol consumption, family history , high blood pressure, overweight, physical inactivity, prior stroke, heart attack, diagnosis of carotid artery stenosis or other artery disease. If you smoke, STOP: Smoking or tobacco use significantly increases your risk of heart and lung disease. Your chance of disease greatly increases if you continue to smoke. For more information, call the [place] tobacco quit line for smoking cessation QUIT-NOW ( )
[2018-03-03] MEDS: Budesonide/Formoterol 160/4.5 MDI IH SCH (11:21)
[2018-03-04 09:44] LABS: ANA IgG by ELISA NONE DETECTED (None Detected)
--- NOTE | 2018-03-05 15:33 | Physician Discharge Referral ---
Home Health/Hosp Referral Info Transfer to: Home Health Provider in Charge Post Discharge: PCP - Diagnosis (1) Acute respiratory failure with hypoxia and hypercapnia Priority: Primary Status: Acute (2) Abnormal liver function tests Priority: Secondary Status: Chronic (3) Generalized weakness Priority: Secondary Status: Chronic (4) Sinus bradycardia Priority: Secondary Status: Acute - Respiratory Orders Oxygen / L per min (Maintain saturation greater than 90%) Smoking Cessation: Smoking cessation has been advised. For more information, call the [place] Tobacco Quit Line at 8-557-JUMZ-NOW. - Diet/Nutrition Diet/Nutrition Orders: Regular - Activity Activity Orders: Up ad ana - Services Needed Following services are medically necessary services: Nursing, Physical Therapy, Occupational Therapy - Transfer Medications Prescriptions: Ipratropium/Albuterol Sulfate [Combivent Respimat Inhal [place]] 4 gm IH Q6HR PRN #60 aer.w.adap PRN Reason: Shortness Of Breath Atenolol [Tenormin] 50 mg PO DAILY #30 tablet Ferrous Sulfate 325 mg PO DAILY@0800 #60 tablet levoFLOXacin [Levaquin] 750 mg PO DAILY #3 tablet predniSONE [PredniSONE] 40 mg PO DAILY #5 tablet Tiotropium [Spiriva] 18 mcg IH 0700 #60 capsule Home Medications: ALPRAZolam [Xanax 0.5 MG Tablet] 0.5 mg PO HS 07/10/17 [History] Acetaminophen [Tylenol] 500 mg PO Q6HR PRN 07/10/17 [History] Cholecalciferol (D-3) [Vitamin D] 1,000 unit PO DAILY 07/10/17 [History] Cyanocobalamin (Vitamin B-12) [Vitamin B-12] 1,000 mcg SL DAILY 07/10/17 [ History] Levothyroxine [Synthroid] 75 mcg PO DAILY 07/10/17 [History] Losartan Potassium [Cozaar] 100 mg PO DAILY 07/10/17 [History] Lovastatin [Mevacor] 20 mg PO HS 07/10/17 [History] Meloxicam 15 mg PO DAILY 07/10/17 [History] Multivitamin [One Daily Multivitamin] 1 each PO DAILY 07/10/17 [History] Tramadol HCl [Ultram] 50 mg PO TID 07/10/17 [History] ALPRAZolam [Xanax 0.5 MG Tablet] 0.25 mg PO BID 02/27/18 [History] Alendronate Sodium [Fosamax] 70 mg PO MO 02/27/18 [History] Atenolol [Tenormin] 50 mg PO DAILY #30 tablet 03/03/18 [Rx] Ferrous Sulfate 325 mg PO DAILY@0800 #60 tablet 03/03/18 [Rx] Ipratropium/Albuterol Sulfate [Combivent Respimat Inhal [place]] 4 gm IH Q6HR PRN #60 aer.w.adap 03/03/18 [Rx] Tiotropium [Spiriva] 18 mcg IH 0700 #60 capsule 03/03/18 [Rx] levoFLOXacin [Levaquin] 750 mg PO DAILY #3 tablet 03/03/18 [Rx] predniSONE [PredniSONE] 40 mg PO DAILY #5 tablet 03/03/18 [Rx] Allergies/Adverse Reactions: 3 Allergy/AdvReac Type Severity Reaction Status Date / Time amlodipine AdvReac Nausea/WEAK Verified 02/27/18 16:14 Certification: Further, I certify that my clinical findings support that this patient is homebound (i.e. absences from home require considerable and taxing effort and are for medical reasons or zoroastrian services or infrequently or short duration when for other reasons) because: Homebound Reason: Leaving home requires considerable and taxing effort due to condition, Severity of cardiac or pulmonary status limits activity tolerance Attestation: My signature below is to certify that this patient is under my care and that I, or nurse practitioner, or a physician's licensed physical therapy assistant working with me, has a face-to -face encounter with this patient.
== END 2018-03-03 15:37 | disposition home or self-care (01) | DRG 441 ==
LOC: EMEROO 12:31 → 3NENU 12:31 → SUATTDRO 20:19
PROVIDERS: ADMIT Student in an Organized Health Care Education/Training Program; ATTEND Student in an Organized Health Care Education/Training Program

== ENCOUNTER 2018-06-25 08:01 | Observation (INO) ==
--- NOTE | 2018-06-25 08:13 | Emergency Department Note ---
Addendum entered and electronically signed by Vinicius Meza DO 06/25/18 12:04: Add UTI to diagnoisis. Patient already received rocephin for treatment of pneumonia Original Note: Disposition Clinical Impression: Symptomatic bradycardia, DAYO (acute kidney injury), Chronic anemia, Hyponatremia, UTI (urinary tract infection) Leukocytosis Qualifiers: Leukocytosis type: unspecified Qualified Code(s): D72.829 - Elevated white blood cell count, unspecified Pneumonia Qualifiers: Pneumonia type: due to unspecified organism Laterality: left Lung location: lower lobe of lung Qualified Code(s): J18.1 - Lobar pneumonia, unspecified organism Disposition: Admitted As Inpatient Condition: Fair Referrals: Vinicius Jones MD [Primary Care Provider] - Forms: ED Satisfaction Letter Time of Disposition: 10:01 Weakness HPI - General Chief complaint: ED Weakness Stated complaint: Nausea/Weakness Time Seen by Provider: 06/25/18 08:08 Source: patient Mode of arrival: ambulatory Limitations: no limitations Nursing Notes Reviewed: Yes Vital Signs Reviewed: Yes - History of Present Illness HPI Narrative: Patient is a 77-year-old female with past medical history of hypertension, high cholesterol, mild COPD. She presents today due to generalized weakness. She states that for the past 2 days, she has felt overall fatigued and generally weak. Denies any chest pain, shortness of breath, vomiting, diarrhea, abdominal pain. She admits to some mild dysuria but denies any hematuria. She has not had a bowel movement for 2 days. States that she has been so generally weak that she has been having to use a walker to get around. She does state that this is happen once in the past and her heart rate was low. She had a hospital stay but states that she is unsure what her diagnosis was. She is currently on atenolol 100 mg and losartan 100 mg daily for blood pressure area in she denies any previous GA or stent placement. Does not have a pacemaker placed. Pain Scale: 0 - Related Data Home Medications Medication Instructions Recorded Confirmed ALPRAZolam [Xanax 0.5 MG Tablet] 0.5 mg PO BID 07/10/17 06/25/18 Acetaminophen [Tylenol] 500 mg PO Q6HR PRN 07/10/17 06/25/18 Cholecalciferol (D-3) [Vitamin D] 1,000 unit PO DAILY 07/10/17 06/25/18 Cyanocobalamin (Vitamin B-12) 1,000 mcg SL DAILY 07/10/17 06/25/18 [Vitamin B-12] Levothyroxine [Synthroid] 75 mcg PO DAILY 07/10/17 06/25/18 Losartan Potassium [Cozaar] 100 mg PO DAILY 07/10/17 06/25/18 Lovastatin [Mevacor] 20 mg PO HS 07/10/17 06/25/18 Meloxicam 15 mg PO DAILY 07/10/17 06/25/18 Multivitamin [One Daily 1 each PO DAILY 07/10/17 06/25/18 Multivitamin] Tramadol HCl [Ultram] 50 mg PO TID 07/10/17 06/25/18 Alendronate Sodium [Fosamax] 70 mg PO MO 02/27/18 06/25/18 Albuterol Sulfate [Proair Hfa] 2 puff IH Q4H PRN 06/25/18 06/25/18 Budesonide/Formoterol 160/4.5 2 puff IH BID 06/25/18 06/25/18 [Symbicort 160/4.5] Previous Rx's Medication Instructions Recorded Atenolol [Tenormin] 50 mg PO DAILY #30 tablet 03/03/18 Ferrous Sulfate 325 mg PO DAILY@0800 #60 tablet 03/03/18 Tiotropium [Spiriva] 18 mcg IH 0700 #60 capsule 03/03/18 Allergies Allergy/AdvReac Type Severity Reaction Status Date / Time amlodipine AdvReac Nausea/WEAK Verified 06/25/18 08:25 All systems ED: reviewed and negative except as stated. Constitutional: Denies: fever Cardiovascular: Denies: chest pain, palpitations Respiratory: Denies: cough, dyspnea, wheezes Gastrointestinal: Reports: nausea. Denies: abdominal pain, vomiting, diarrhea, constipation Genitourinary: Reports: dysuria. Denies: urgency, frequency, hematuria, discharge Integumentary: Denies: rash Neurological: Denies: headache, weakness, numbness, paresthesias Past Medical History - Past Medical History Attestation: Yes The following information was validated with the patient. Source: patient Medical history: Reports: arthritis, hyperlipidemia, hypertension, osteoporosis , thyroid disease Surgical history: Reports: appendectomy, cataract, hysterectomy, orthopedic, other Psychiatric history: Reports: anxiety - Social History Smoking Status: Former smoker Smokeless Tobacco Status: No Alcohol use: Reports: none Drug use: Reports: none Physical Exam - General Limitations: no limitations General appearance: alert, other (Appears generally weak) - Head Head exam: atraumatic, normocephalic, normal inspection - Eye Eye exam: Present: normal appearance, PERRL, EOMI - ENT ENT exam: normal exam, normal oropharynx, mucous membranes moist - Neck Neck exam: Present: normal inspection, full ROM, trachea midline - Chest Chest inspection: Present: normal inspection, symmetric chest wall rise - Respiratory Respiratory exam: Present: normal lung sounds bilaterally - Cardiovascular Cardiovascular exam: Present: regular rate, normal rhythm, normal heart sounds - Abdominal Exam Abdominal exam: Present: soft, Non-Tender. Absent: tenderness, distention, guarding, rebound, rigidity - Extremities Exam Extremities exam: Present: normal inspection, full ROM. Absent: tenderness, pedal edema - Neurological Exam Neurological exam: Present: alert, oriented X3, CN II-XII intact. Absent: motor sensory deficit - Expanded Neurological Exam Patient oriented to: Present: person, place, time Speech: Present: fluid speech Cranial nerves: EOM function (II, III, IV, ): Normal, facial sensation (V): Normal, facial palsy (VII): Normal, spinal accessory function (XI): Normal, tongue deviation (XII): Normal Motor strength - LUE: 4/5 Motor strength - RUE: 4/5 Motor strength - LLE: 4/5 Motor strength - RLE: 4/5 Sensory exam upper extremity: light touch: Normal Sensory exam lower extremity: light touch: Normal Coma Scale Eye Opening: Spontaneous Coma Scale Motor Response: Obeys Commands Coma Scale Verbal Response: Oriented Coma Scale Total: 15 - Psychiatric Psychiatric exam: Present: normal affect, normal mood - Skin Skin exam: Present: warm, dry, intact, normal color Course Course Narrative: Heart rate in the 40s. We will pressure systolic 90s. Physical exam shows a generally weak patient. No focal neurologic deficits on neuro exam. EKG shows junctional rhythm with a rate of 47. We will perform basic blood work, chest x- ray, give normal saline fluid bolus. Currently concern for potassium derangement versus beta mauricio overdose. We will wait for electrolytes and proceed from there. We will go ahead and give the patient calcium gluconate 2 g, IV insulin 10 units , dextrose 50 to treat preemptively hyperkalemia versus beta mauricio overdose. Labs show new DAYO, potassium 5.1, hyponatremia, near baseline chronic anemia, new elevation white blood cell count. Chest x-ray shows left lower lobe infiltrate. Patient was given Rocephin and azithromycin. Patient has had multiple repeat EKGs. After medications, patient now has obvious P waves. Blood pressure is improving to systolic of 116 after medication and normal saline bolus. Still no acute ST changes. Cardiology has been called at this time. She remains stable. 10:[address] Harper, discussed presentation, vitals, treatment, EKGs. He was agreeable with treatment so far. He will act as a consult. No new recommendations at this time.Accepted by Dr. Hebert. Vital Signs Temperature 98.0 F 06/25/18 08:03 Pulse Rate 40 06/25/18 08:03 Respiratory Rate 16 06/25/18 08:03 Blood Pressure 98/47 06/25/18 08:03 O2 Sat by Pulse Oximetry 92 06/25/18 08:03 Temperature 98.0 F 06/25/18 08:14 Pulse Rate 40 06/25/18 12:08 Respiratory Rate 20 06/25/18 12:08 Blood Pressure 128/39 06/25/18 12:08 O2 Sat by Pulse Oximetry 94 06/25/18 12:08 Oxygen Delivery Oxygen Delivery Nasal Cannula Weakness - MDM Narrative Medical decision making narrative: Heart rate in the 40s. We will pressure systolic 90s. Physical exam shows a generally weak patient. No focal neurologic deficits on neuro exam. EKG shows junctional rhythm with a rate of 47. We will perform basic blood work, chest x- ray, give normal saline fluid bolus. Currently concern for potassium derangement versus beta mauricio overdose. We will wait for electrolytes and proceed from there. We will go ahead and give the patient calcium gluconate 2 g, IV insulin 10 units , dextrose 50 to treat preemptively hyperkalemia versus beta mauricio overdose. Labs show new DAYO, potassium 5.1, hyponatremia, near baseline chronic anemia, new elevation white blood cell count. Chest x-ray shows left lower lobe infiltrate. Patient was given Rocephin and azithromycin. Patient has had multiple repeat EKGs. After medications, patient now has obvious P waves. Blood pressure is improving to systolic of 116 after medication and normal saline bolus. Still no acute ST changes. Cardiology has been called at this time. She remains stable. 10:[address] Harper, discussed presentation, vitals, treatment, EKGs. He was agreeable with treatment so far. He will act as a consult. No new recommendations at this time.Accepted by Dr. Hebert. - Medical Records Medical records reviewed: Yes I reviewed the patient's medical records. - Lab Data Lab results reviewed: Yes I reviewed the patient's lab results. Result diagrams: 06/25/18 09:10 06/25/18 09:10 Lab Results 06/25/18 06/25/18 06/25/18 Range/Units 09:10 09:10 10:50 WBC 17.2 H (4.3-11.1) K/mcL RBC 3.72 L (3.82-4.97) M/mcL Hgb 10.8 L (11.5-15.4) g/dL Hct 35.0 L (35.3-44.9) % MCV 94.1 (83.0-100.0) fL MCH 29.0 (28.0-33.3) pg MCHC 30.9 L (31.6-35.5) g/dL RDW 13.1 (11.5-14.5) % Plt Count 271 (140-400) K/mcL MPV 9.6 (9.4-12.4) fL Immature Gran % 0.8 (0-4) % Seg Neutrophils % 78.2 % Lymphocytes % 13.8 % Monocytes % 6.8 % Eosinophils % 0.2 % Basophils % 0.2 % Neutrophils # 13.4 H (1.6-8.9) K/mcL Lymphocytes # 2.4 (0.6-4.6) K/mcL Monocytes # 1.2 (0.0-1.3) K/mcL Eosinophils # 0.0 (0.0-0.6) K/mcL Basophils # 0.0 (0.0-0.2) K/mcL Sodium 129 L (136-145) mEq/L Potassium 5.1 (3.5-5.1) mEq/L Chloride 97 L (98-107) mEq/L Carbon Dioxide 23 (23-29) mEq/L BUN 41 H (8-23) mg/dL Creatinine 2.20 H (0.60-1.20) mg/dL Est GFR ( Amer) 26 L (> 60) Est GFR (Non-Af Amer) 22 L (> 60) BUN/Creatinine Ratio 19 (6-26) Glucose 117 H (70-105) mg/dL Calculated Osmolality 279 L (280-300) Calcium 8.0 L (8.6-10.3) mg/dL Phosphorus 4.5 (2.7-4.5) mg/dL Magnesium 1.9 (1.6-2.6) mg/dL Total Bilirubin 0.7 (0.3-1.0) mg/dL AST 52 H (13-39) Units/L ALT 50 (7-52) Units/L Alkaline Phosphatase 95 (34-104) Units/L Troponin I 0.03 (< 0.04) ng/mL Serum Total Protein 6.1 L (6.4-8.9) g/dL Albumin 3.3 L (3.5-5.7) g/dL Globulin 2.8 (2.4-3.5) g/dL Albumin/Globulin Ratio 1.2 (1.1-2.2) Urine Color Yellow (Yellow) Urine Clarity Clear (Clear) Urine pH 5.0 (5.0-8.0) pH Units Ur Specific [place] 1.019 (1.010-1.025) Urine Protein Trace (Neg-Trace) mg/dL Urine Glucose (UA) 250 H (Normal) mg/dL Urine Ketones Negative (Negative) mg/dL Urine Blood Negative (Negative) Urine Nitrite Positive A (Negative) Urine Bilirubin Negative (Negative) Urine Urobilinogen Normal (Normal) mg/dL Ur Leukocyte Esterase Moderate H (Negative) Urine Microscopic RBC 0-3 (0-3) per hpf Urine Microscopic WBC 15-30 H (0-3) per hpf Ur Squamous Epith Cells Many H (None-Few) per lpf Ur Renal Epithelial Cell Few (None-Few) per hpf Urine Bacteria Many H (None-Few) per hpf Hyaline Casts None Seen (None-Few) per lpf Ur Culture Indicated? NO. A (NO) - Radiology Data Radiology results reviewed: Yes I reviewed the patient's radiology results. Chest X-Ray 06/25/18 08:25 IMPRESSION: 1. Subtle infiltrate in the left lung base which may be related to atelectasis versus pneumonia. 2. Mild pulmonary vascular congestion. D/ / 06/25/2018 08:51:02 Matteo Caal MD / Marianela Kearney Interpreting Provider: Matteo Caal MD - EKG Data EKG attestation: Yes I reviewed and interpreted this EKG. EKG results narrative: 06/25/2018 at 08:17. Junctional rhythm. Rate 47. QTC 4 and 42. Normal axis. No acute ST elevation or depression. Evidence of left bundle branch block that is present on old EKG on 02/28/2018. 06/23/2018 at 09:14.. Junctional rhythm. Rate 41. QTC 476. Biphasic T-wave in V2, T-wave inversion in V1. New on EKG on 06/23/2018 08:17. No other acute ST changes. 06/25/2018 at 09:53. Sinus bradycardia, rate 44. VT 147. QTC 502. Normal axis. No acute ST elevation or depression. Marty - Marty Situation: Demographics, MOA Background: Presenting Complaint, Relevant PMH, Meds, & Allergies Assessment: Vital Signs, Course and respsone to treatment, Exam Concerns, Patient/Family Expectation, Pertinant Lab Results, Outstanding Labs Recommendation: Barrier(s) to disposition, Recommendation based on pending studies, treatments, or consults Marty Report Given to: Dr. Anup Ferguson Repor Time: 10:44
[2018-06-25] MEDS ORDERED: 0.9 % Sodium Chloride 1,000 ML IVC ONE (08:26)
--- NOTE | 2018-06-25 08:35 | Emergency Department Note ---
Disposition Clinical Impression: Symptomatic bradycardia, DAYO (acute kidney injury), Chronic anemia, Hyponatremia, Leukocytosis, Pneumonia, UTI (urinary tract infection) Disposition: Admitted As Inpatient Condition: Fair Referrals: Vinicius Jones MD [Primary Care Provider] - Forms: ED Satisfaction Letter General Adult HPI - General Chief complaint: ED Weakness Stated complaint: Nausea/Weakness Time Seen by Provider: 06/25/18 08:08 Source: patient Mode of arrival: ambulatory Limitations: no limitations - History of Present Illness Pain Scale: 0 - Related Data Home Medications Medication Instructions Recorded Confirmed ALPRAZolam [Xanax 0.5 MG Tablet] 0.5 mg PO BID 07/10/17 06/25/18 Acetaminophen [Tylenol] 500 mg PO Q6HR PRN 07/10/17 06/25/18 Cholecalciferol (D-3) [Vitamin D] 1,000 unit PO DAILY 07/10/17 06/25/18 Cyanocobalamin (Vitamin B-12) 1,000 mcg SL DAILY 07/10/17 06/25/18 [Vitamin B-12] Levothyroxine [Synthroid] 75 mcg PO DAILY 07/10/17 06/25/18 Losartan Potassium [Cozaar] 100 mg PO DAILY 07/10/17 06/25/18 Lovastatin [Mevacor] 20 mg PO HS 07/10/17 06/25/18 Meloxicam 15 mg PO DAILY 07/10/17 06/25/18 Multivitamin [One Daily 1 each PO DAILY 07/10/17 06/25/18 Multivitamin] Tramadol HCl [Ultram] 50 mg PO TID 07/10/17 06/25/18 Alendronate Sodium [Fosamax] 70 mg PO MO 02/27/18 06/25/18 Albuterol Sulfate [Proair Hfa] 2 puff IH Q4H PRN 06/25/18 06/25/18 Budesonide/Formoterol 160/4.5 2 puff IH BID 06/25/18 06/25/18 [Symbicort 160/4.5] Previous Rx's Medication Instructions Recorded Atenolol [Tenormin] 50 mg PO DAILY #30 tablet 03/03/18 Ferrous Sulfate 325 mg PO DAILY@0800 #60 tablet 03/03/18 Tiotropium [Spiriva] 18 mcg IH 0700 #60 capsule 03/03/18 Allergies Allergy/AdvReac Type Severity Reaction Status Date / Time amlodipine AdvReac Nausea/WEAK Verified 06/25/18 08:25 Constitutional: Denies: fever Cardiovascular: Denies: chest pain, palpitations Respiratory: Denies: cough, dyspnea, wheezes Gastrointestinal: Reports: nausea. Denies: abdominal pain, vomiting, diarrhea, constipation Genitourinary: Reports: dysuria. Denies: urgency, frequency, hematuria, discharge Integumentary: Denies: rash Neurological: Denies: headache, weakness, numbness, paresthesias Past Medical History - Past Medical History Medical history: Reports: arthritis, hyperlipidemia, hypertension, osteoporosis , thyroid disease Surgical history: Reports: appendectomy, cataract, hysterectomy, orthopedic, other Psychiatric history: Reports: anxiety - Social History Smoking Status: Former smoker Smokeless Tobacco Status: No Alcohol use: Reports: none Drug use: Reports: none Physical Exam - General Limitations: no limitations General appearance: alert, other (Appears generally weak) Course Vital Signs Temperature 98.0 F 06/25/18 08:03 Pulse Rate 40 06/25/18 08:03 Respiratory Rate 16 06/25/18 08:03 Blood Pressure 98/47 06/25/18 08:03 O2 Sat by Pulse Oximetry 92 06/25/18 08:03 Temperature 98.0 F 06/25/18 08:14 Pulse Rate 40 06/25/18 12:08 Respiratory Rate 20 06/25/18 12:08 Blood Pressure 128/39 06/25/18 12:08 O2 Sat by Pulse Oximetry 94 06/25/18 12:08 Oxygen Delivery Oxygen Delivery Nasal Cannula Medical Decision Making - Lab Data Result diagrams: 06/25/18 09:10 06/25/18 09:10 Lab Results 06/25/18 06/25/18 06/25/18 Range/Units 09:10 09:10 10:50 WBC 17.2 H (4.3-11.1) K/mcL RBC 3.72 L (3.82-4.97) M/mcL Hgb 10.8 L (11.5-15.4) g/dL Hct 35.0 L (35.3-44.9) % MCV 94.1 (83.0-100.0) fL MCH 29.0 (28.0-33.3) pg MCHC 30.9 L (31.6-35.5) g/dL RDW 13.1 (11.5-14.5) % Plt Count 271 (140-400) K/mcL MPV 9.6 (9.4-12.4) fL Immature Gran % 0.8 (0-4) % Seg Neutrophils % 78.2 % Lymphocytes % 13.8 % Monocytes % 6.8 % Eosinophils % 0.2 % Basophils % 0.2 % Neutrophils # 13.4 H (1.6-8.9) K/mcL Lymphocytes # 2.4 (0.6-4.6) K/mcL Monocytes # 1.2 (0.0-1.3) K/mcL Eosinophils # 0.0 (0.0-0.6) K/mcL Basophils # 0.0 (0.0-0.2) K/mcL Sodium 129 L (136-145) mEq/L Potassium 5.1 (3.5-5.1) mEq/L Chloride 97 L (98-107) mEq/L Carbon Dioxide 23 (23-29) mEq/L BUN 41 H (8-23) mg/dL Creatinine 2.20 H (0.60-1.20) mg/dL Est GFR ( Amer) 26 L (> 60) Est GFR (Non-Af Amer) 22 L (> 60) BUN/Creatinine Ratio 19 (6-26) Glucose 117 H (70-105) mg/dL Calculated Osmolality 279 L (280-300) Calcium 8.0 L (8.6-10.3) mg/dL Phosphorus 4.5 (2.7-4.5) mg/dL Magnesium 1.9 (1.6-2.6) mg/dL Total Bilirubin 0.7 (0.3-1.0) mg/dL AST 52 H (13-39) Units/L ALT 50 (7-52) Units/L Alkaline Phosphatase 95 (34-104) Units/L Troponin I 0.03 (< 0.04) ng/mL Serum Total Protein 6.1 L (6.4-8.9) g/dL Albumin 3.3 L (3.5-5.7) g/dL Globulin 2.8 (2.4-3.5) g/dL Albumin/Globulin Ratio 1.2 (1.1-2.2) Urine Color Yellow (Yellow) Urine Clarity Clear (Clear) Urine pH 5.0 (5.0-8.0) pH Units Ur Specific [place] 1.019 (1.010-1.025) Urine Protein Trace (Neg-Trace) mg/dL Urine Glucose (UA) 250 H (Normal) mg/dL Urine Ketones Negative (Negative) mg/dL Urine Blood Negative (Negative) Urine Nitrite Positive A (Negative) Urine Bilirubin Negative (Negative) Urine Urobilinogen Normal (Normal) mg/dL Ur Leukocyte Esterase Moderate H (Negative) Urine Microscopic RBC 0-3 (0-3) per hpf Urine Microscopic WBC 15-30 H (0-3) per hpf Ur Squamous Epith Cells Many H (None-Few) per lpf Ur Renal Epithelial Cell Few (None-Few) per hpf Urine Bacteria Many H (None-Few) per hpf Hyaline Casts None Seen (None-Few) per lpf Ur Culture Indicated? NO. A (NO) Critical Care Time Critical Care Time: Yes Total Critical Care Time: 35 Attestation: Critical care performed: Time is exclusive of separately billable procedures. Time includes: direct patient care, patient reassessment, coordination of patient care, interpretation of data (laboratory data, radiology data, and respiratory data), review of patient's medical records, medical consultation and documentation of patient care. Procedures included in critical care time: Procedures excluded from critical care time: Attestation Statement - Attestation Attestation: I examined this patient and my medical decision-making was reviewed with the Resident Physician. I agree with the documented findings, disposition and treatment plan as described except to the extent set forth below. Patient to the ED with a chief complaint of nausea and dizziness. Patient complains of weakness and dizziness with ambulation. Resolves with rest. Noted her heart rate to below. Patient states she had a similar episode in the past and was admitted but was never given a diagnosis. She is on atenolol for her blood pressure. On examination she does not appear to be in any distress. Her heart rates constant in the low 40s. Plan. Cardiac workup. Electrolytes. Patient's EKG shows a junctional rhythm in the 40s. No ischemic changes. Patient will be admitted after we discuss results with cardiology. Called to reevaluate patient. Hypertensive. Blood pressure recheck after repositioning a blood pressure cuff is 95 systolic. Patient states she feels no different. Repeat EKG performed. Heart rate still mildly low 40s. Patient will be given insulin and glucose potassium and calcium as we are not concerned for hyperkalemia. Labs still pending at this time. Labs reviewed. Patient has acute kidney injury. Pneumonia. Leukocytosis. UTI. Admitted to medicine.
[2018-06-25] MEDS ORDERED: Insulin Human Regular 10 UNIT in 0.9 % Sodium Chloride 10 ML IV ONE (09:14)
[2018-06-25] MEDS ORDERED: Calcium Gluconate 2,000 MG in 0.9 % Sodium Chloride 100 ML IVPB ONE (09:14)
[2018-06-25] MEDS ORDERED: *HR* Dextrose 50 % in Water (Syg) 50 ML SYRINGE IVP ONE (09:15)
[2018-06-25 09:29] LABS: Basophils % 0.2 %; Eosinophils % 0.2 %; Hemoglobin 10.8 g/dL (11.5-15.4); Immature Granulocytes % 0.8 % (0-4); Lymphocytes # 2.4 K/mcL (0.6-4.6); Lymphocytes % 13.8 %; Mean Corpuscular HGB Conc 30.9 g/dL (31.6-35.5); Mean Corpuscular Volume 94.1 fL (83.0-100.0); Mean Platelet Volume 9.6 fL (9.4-12.4); Monocytes # 1.2 K/mcL (0.0-1.3); Monocytes % 6.8 %; Neutrophils # 13.4 K/mcL (1.6-8.9); Platelet Count 271 K/mcL (140-400); Red Blood Count 3.72 M/mcL (3.82-4.97); Red Cell Distribution Width 13.1 % (11.5-14.5); Segmented Neutrophils % 78.2 %
[2018-06-25 09:41] LABS: Troponin I 0.03 ng/mL (< 0.04)
[2018-06-25 09:42] LABS: Albumin 3.3 g/dL (3.5-5.7); Albumin/Globulin Ratio 1.2 (1.1-2.2); Bilirubin,Total 0.7 mg/dL (0.3-1.0); Globulin 2.8 g/dL (2.4-3.5); Magnesium 1.9 mg/dL (1.6-2.6); Phosphorous 4.5 mg/dL (2.7-4.5); Potassium 5.1 mEq/L (3.5-5.1); Total Protein 6.1 g/dL (6.4-8.9)
[2018-06-25] MEDS ORDERED: cefTRIAXone 1,000 MG in Water for inj. (sterile) 20 ML 10 ML IVP ONE (09:48)
[2018-06-25] MEDS ORDERED: Azithromycin 500 MG in D5% in Water 250 ML IVPB ONE (09:48)
[2018-06-25 10:58] LABS: Bilirubin,Urine Negative (Negative); Blood,Urine Negative (Negative); Color,Urine Yellow (Yellow); Glucose,Urine (UA) 250 mg/dL (Normal); Ketones,Urine Negative (Negative); Leukocyte Esterase,Urine Moderate (Negative); Nitrite,Urine Positive (Negative); Protein,Urine Trace mg/dL (Neg-Trace); Specific Gravity,Urine 1.019 (1.010-1.025); Urobilinogen,Urine Normal (Normal)
[2018-06-25 11:00] LABS: Bacteria,Urine Many per hpf (None-Few); Hyaline Casts,Urine None Seen per lpf (None-Few); RBC,Urine 0-3 per hpf (0-3); Squamous Epithelial Cell,Urine Many per lpf (None-Few); WBC,Urine 15-30 per hpf (0-3)
[2018-06-25 11:04] LABS: Clarity,Urine Clear (Clear)
[2018-06-25 11:16] LABS: Renal Epithelial Cells,Urine Few per hpf (None-Few)
[2018-06-25] MEDS ORDERED: Ondansetron 4 MG/2 ML VIAL IVP ONE (13:16)
[2018-06-25] MEDS ORDERED: Naloxone 0.4 MG/ML INJ IVP PRN (13:17)
[2018-06-25] MEDS ORDERED: 0.9 % Sodium Chloride 1,000 ML IVC SCH ×2 (13:30→18:51)
--- NOTE | 2018-06-25 13:55 | Internal Med History&Physical ---
<Víctor Baker P - Last Filed: 06/25/18 14:39> Date of Encounter: 06/25/18 Time of Encounter: 13:00 Internal Medicine - H&P: HPI Chief complaint: Weakness and Nausea Admitted From: Home Plans for Post Hospital Care: Home History of present illness: Ms. Gabriel is a 77 year old female with past medical history significant for hypertension, hyperlipidemia, COPD, and chronic back pain who presents for 2 day history of nausea and weakness. Also complains of dizziness with ambulation and intermittent shortness of breath. States she had similar symptoms in February or March of this year and thinks she was told it was due to her heart rate being low from home atenolol which she says she apparently resumed after discharge as she states her current medication list should be updated and is unable to currently verify otherwise. Thinks she had a stress test and echocardiogram sometime last year which she thinks was normal. States symptoms are worse with movement and improved with rest. Denies any current treatment. Denies any associated chest pain, abdominal pain, vomiting, diarrhea, or urinary changes. Was scheduled to have pre op testing this Saturday for a back procedure next week. Past Med Surg Social Fam HX - Past Medical History Medical history: arthritis, hyperlipidemia, hypertension, osteoporosis, thyroid disease Psychiatric history: anxiety - Past Surgical History Surgical History: appendectomy, cataract, hysterectomy, orthopedic, other Additional surgical history: Rotator cuff,BACK SURGERY TO REPAIR COMPRESSION FX - Social History Smoking Status: Former smoker Smokeless Tobacco Status: No Alcohol use: none Drug use: none - Family History Father Family Member Ethnicity: Non- Living Status: Hx Family Cardiac Disorders: Yes Hx Family Respiratory Disorders: No Hx Family Cancer: No Hx Family GI Disorders: No Hx Family Endocrine Disorder: No Hx Family Neuromuscular Disorders: No Hx Family Neurologic Disorders: No Hx Family HEENT Disorders: No Hx Family Autoimmune Disorders: No Internal Medicine - H&P: Meds ALPRAZolam [Xanax 0.5 MG Tablet] 0.5 mg PO BID 07/10/17 [History] Acetaminophen [Tylenol] 500 mg PO Q6HR PRN 07/10/17 [History] Cholecalciferol (D-3) [Vitamin D] 1,000 unit PO DAILY 07/10/17 [History] Cyanocobalamin (Vitamin B-12) [Vitamin B-12] 1,000 mcg SL DAILY 07/10/17 [ History] Levothyroxine [Synthroid] 75 mcg PO DAILY 07/10/17 [History] Losartan Potassium [Cozaar] 100 mg PO DAILY 07/10/17 [History] Lovastatin [Mevacor] 20 mg PO HS 07/10/17 [History] Meloxicam 15 mg PO DAILY 07/10/17 [History] Multivitamin [One Daily Multivitamin] 1 each PO DAILY 07/10/17 [History] Tramadol HCl [Ultram] 50 mg PO TID 07/10/17 [History] Alendronate Sodium [Fosamax] 70 mg PO MO 02/27/18 [History] Atenolol [Tenormin] 50 mg PO DAILY #30 tablet 03/03/18 [Rx] Ferrous Sulfate 325 mg PO DAILY@0800 #60 tablet 03/03/18 [Rx] Tiotropium [Spiriva] 18 mcg IH 0700 #60 capsule 03/03/18 [Rx] Albuterol Sulfate [Proair Hfa] 2 puff IH Q4H PRN 06/25/18 [History] Budesonide/Formoterol 160/4.5 [Symbicort 160/4.5] 2 puff IH BID 06/25/18 [ History] 3 Allergy/AdvReac Type Severity Reaction Status Date / Time amlodipine AdvReac Nausea/WEAK Verified 06/25/18 08:25 All Systems PM: A 10-system review of systems was performed and is negative for pertinent findings except as documented above in the HPI. - Constitutional Vitals: Temp Pulse Resp BP Pulse Ox 98.0 F 52 19 101/75 99 06/25/18 08:14 06/25/18 13:15 06/25/18 13:15 06/25/18 13:15 06/25/18 13:15 Exam: General: Alert and oriented, in no acute distress. Skin:Normal color, no rash, no lesions. HEENT:EOM, pupils equal, round and reactive. Cardiovascular:Heart sounds distant, no murmurs or gallops. No JVD. Lungs:Breath sounds decreased, no wheezes or crackles. Abdomen:Soft, non-tender, no rigidity. Extremities:No deformity, no edema or tenderness, no joint swelling or clubbing. Neurological:Normal cognition and motor skills. Pulses:Carotid and radial pulses normal +2. Rest of the physical exam is non contributory. Internal Med - H&P Results - Labs CBC & Chem 7: 06/25/18 09:10 06/25/18 09:10 Labs: Short CBC 06/25/18 Range/Units 09:10 WBC 17.2 H (4.3-11.1) K/mcL Hgb 10.8 L (11.5-15.4) g/dL Hct 35.0 L (35.3-44.9) % Plt Count 271 (140-400) K/mcL Neutrophils # 13.4 H (1.6-8.9) K/mcL BMP 06/25/18 09:10 Sodium 129 L Potassium 5.1 Chloride 97 L Carbon Dioxide 23 BUN 41 H Creatinine 2.20 H Glucose 117 H Calcium 8.0 L Cardiac Enzymes 06/25/18 Range/Units 09:10 Troponin I 0.03 (< 0.04) ng/mL Liver Function 06/25/18 Range/Units 09:10 Total Bilirubin 0.7 (0.3-1.0) mg/dL AST 52 H (13-39) Units/L ALT 50 (7-52) Units/L Alkaline Phosphatase 95 (34-104) Units/L Albumin 3.3 L (3.5-5.7) g/dL Urine 06/25/18 Range/Units 10:50 Urine Color Yellow (Yellow) Urine Clarity Clear (Clear) Urine pH 5.0 (5.0-8.0) pH Units Ur Specific [place] 1.019 (1.010-1.025) Urine Protein Trace (Neg-Trace) mg/dL Urine Glucose (UA) 250 H (Normal) mg/dL - Impressions ITS Impressions Chest X-Ray 06/25/18 08:25 IMPRESSION: 1. Subtle infiltrate in the left lung base which may be related to atelectasis versus pneumonia. 2. Mild pulmonary vascular congestion. D/ / 06/25/2018 08:51:02 Matteo Caal MD / Marianela Kearney Interpreting Provider: Matteo Caal MD - Assessment and plan (1) DAYO (acute kidney injury) Current Visit: Yes Status: Acute Assessment and plan: Liter bolus in ER, continue maintenance fluids. Repeat BMP in a.m. (2) Hyperkalemia Current Visit: Yes Status: Acute Assessment and plan: Fluids and insulin with dextrose given in ER. Repeat level today. (3) Hypocalcemia Current Visit: Yes Status: Acute Assessment and plan: Replacement given in ER. Repeat level in a.m. (4) Hyponatremia Current Visit: Yes Status: Acute Assessment and plan: Liter bolus give in ER. Maintenance fluids ordered. Repeat level in a.m. (5) Pneumonia Current Visit: Yes Status: Suspected Assessment and plan: IV antibiotics started in ER prior to blood cultures. Blood cultures now ordered. Start Rocephin and Doxycycline tomorrow. Qualifiers: Pneumonia type: due to unspecified organism Laterality: left Lung location: lower lobe of lung Qualified Code(s): J18.1 - Lobar pneumonia, unspecified organism (6) UTI (urinary tract infection) Current Visit: Yes Status: Suspected Assessment and plan: Possible contaminated UA in ER. Repeat UA, culture if needed. Doxycycline tomorrow for suspected pneumonia to cover suspected UTI. (7) Chronic anemia Current Visit: Yes Status: Acute Assessment and plan: Repeat CBC in a.m. (8) Nausea Current Visit: Yes Status: Acute Assessment and plan: PRN zofran as needed. (9) Symptomatic bradycardia Current Visit: Yes Status: Acute Assessment and plan: Cardiology consulted. Spoke with Dr Harper who is to see patient today. Hold cardiac medications. Cardiac diet. Liter bolus in ER. Will continue maintenance fluids. Continuous retention specialist. - Time Spent With Patient Total time spent is greater than 50% in coordination of care (as documented) at patient's floor/unit and/or counseling patient: <AnupYasir - Last Filed: 06/25/18 15:38> Date of Encounter: 06/25/18 Time of Encounter: 13:20 Internal Medicine - H&P: HPI Admitted From: Emergency Dept Plans for Post Hospital Care: Home History of present illness: Ms. Gabriel is a 77 year old female All Systems PM: A 10-system review of systems was performed and is negative for pertinent findings except as documented above in the HPI. - Constitutional Vitals: Temp Pulse Resp BP Pulse Ox 98.1 F 47 18 114/49 93 06/25/18 14:37 06/25/18 14:37 06/25/18 14:37 06/25/18 14:37 06/25/18 14:37 Internal Med - H&P Results - Labs CBC & Chem 7: 06/25/18 09:10 06/25/18 09:10 - Assessment and plan (1) DAYO (acute kidney injury) Current Visit: No Status: Acute (2) Chronic anemia Current Visit: No Status: Acute (3) Hyponatremia Current Visit: No Status: Acute (4) Pneumonia Current Visit: No Status: Suspected Qualifiers: Pneumonia type: due to unspecified organism Laterality: left Lung location: lower lobe of lung Qualified Code(s): J18.1 - Lobar pneumonia, unspecified organism (5) UTI (urinary tract infection) Current Visit: No Status: Suspected (6) Nausea Current Visit: No Status: Acute (7) Hyperkalemia Current Visit: No Status: Acute (8) Hypocalcemia Current Visit: No Status: Acute (9) Symptomatic bradycardia Current Visit: Yes Status: Acute - Time Spent With Patient Total time spent is greater than 50% in coordination of care (as documented) at patient's floor/unit and/or counseling patient: - Attending Attestation I saw and evaluated this patient and my medical decision-making was reviewed with the Nurse Practitioner. I agree with the documented findings, disposition and treatment plan as described except to any changes set forth below. We independently had [id number] contact with the patient. 77-year-old female patient presented to the ER with complaints of generalized weakness, dizziness. Symptoms began on Saturday and have been progressively getting worse. She has not passed out. She has noticed some decrease in her urine output. She feels the and tired all the time. She denies any cough. No shortness of breath. No fever but she had excessive sweating earlier this morning. On examination, patient has bradycardia. Heart sounds are normal. Breath sounds are also normal. Abdomen is soft, nontender. Oral mucosa is dry. Her lab work shows creatinine of 2.2, potassium of 5.1, BNP 41, WBC 17.2, H2 71. Urinalysis suggests possible UTI Chest x-ray shows infiltrate in the left lung base and mild pulmonary vascular congestion. Her heart rate has been running in the 40s. Pneumonia: Possible pneumococcal. Follow blood cultures. Check urine Legionella and streptococcal antigens. IV antibiotics. Symptomatic bradycardia: Likely due to beta blockade with underlying acute kidney injury. Stop atenolol. Monitor with telemetry. Cardiology consult. Follow recommendations. Acute kidney injury: Monitor renal function. IV hydration gently. Monitor input and output. Hypothyroidism: Continue levothyroxine. Check TSH and free T4 levels.
--- NOTE | 2018-06-25 14:43 | Cardiology Consult Note ---
Date of Encounter: 06/25/18 Time of Encounter: 14:41 Assessment and Plan (1) Symptomatic bradycardia Current Visit: Yes Status: Acute Presents with 2 days nausea, weakness, exertional dizziness and dyspnea with HR found in low 40s, intermittent junctional rhythm. Denies syncope or chest pain. EKG junctional rhythm with LBBB. LBBB is known, not new. Pt is on Atenolol 50mg daily, last dose this AM, 06/25. Hx of bradycardia in February admission and Atenolol was resumed at d/c. Atenolol has been stopped. Recommend avoiding AV magda blockers. K 5.1. Check Mag and TSH. TTE 06/2017 EF preserved. Nuclear stress test 06/2017 negative for ischemia or infarct. Recheck TTE. Will continue to monitor telemetry and HR off AV magda blockers. No urgent indication for PPM at this time. HR upper 40s at bedside, resting comfortably. If junctional rhythm/bradycardia continues after BB washout, will consider PPM. Discussion w patient/family: The assessment and plan as outlined above was discussed with the patient and/or family members who expressed understanding and agreement. All questions were answered. Thank you for involving us in the care of your patient. Please call with any questions. I will discuss all the above with Dr. Harper and make changes as necessary. History of Present Illness Consult date: 06/25/18 Consult reason: bradycardia Chief complaint: nausea, weakness, dizziness History of present illness: Ms. Gabriel is a 77 year old female with PMH of HTN, HLD, COPD, chronic back pain who presented to ED for 2 day history of nausea and weakness. Reports dizziness with ambulation and intermittent shortness of breath on exertion. States she had similar symptoms in February, was told it was due to her heart rate being low from atenolol, but the medication was resumed at d/c--confirmed on prior documents. TTE with preserved EF and negative stress test 06/2017. Pt denies chest pain or syncope. HR low 40s on presentation, intermittent junctional rhythm. Cardiology consulted for further recs. Also found to have DAYO , Creatinine 2.20 (baseline is normal), K 5.1. Prior CV testing: Pharmacologic nuclear stress test 07/03/17: Perfusion imaging negative for ischemia or infarct. Gated EF >70%. TTE 07/03/17: LVEF 60%, mild LVDD, mild GA. Past Med Surg Social Fam HX - Past Medical History Medical history: arthritis, hyperlipidemia, hypertension, osteoporosis, thyroid disease Psychiatric history: anxiety - Past Surgical History Surgical History: appendectomy, cataract, hysterectomy, orthopedic, other Additional surgical history: Rotator cuff,BACK SURGERY TO REPAIR COMPRESSION FX - Social History Smoking Status: Former smoker Smokeless Tobacco Status: No Alcohol use: none Drug use: none - Family History Father Family Member Ethnicity: Non- Living Status: Hx Family Cardiac Disorders: Yes Hx Family Respiratory Disorders: No Hx Family Cancer: No Hx Family GI Disorders: No Hx Family Endocrine Disorder: No Hx Family Neuromuscular Disorders: No Hx Family Neurologic Disorders: No Hx Family HEENT Disorders: No Hx Family Autoimmune Disorders: No Medications and Allergies ALPRAZolam [Xanax 0.5 MG Tablet] 0.5 mg PO BID 07/10/17 [History] Acetaminophen [Tylenol] 500 mg PO Q6HR PRN 07/10/17 [History] Cholecalciferol (D-3) [Vitamin D] 1,000 unit PO DAILY 07/10/17 [History] Cyanocobalamin (Vitamin B-12) [Vitamin B-12] 1,000 mcg SL DAILY 07/10/17 [ History] Levothyroxine [Synthroid] 75 mcg PO DAILY 07/10/17 [History] Losartan Potassium [Cozaar] 100 mg PO DAILY 07/10/17 [History] Lovastatin [Mevacor] 20 mg PO HS 07/10/17 [History] Meloxicam 15 mg PO DAILY 07/10/17 [History] Multivitamin [One Daily Multivitamin] 1 each PO DAILY 07/10/17 [History] Tramadol HCl [Ultram] 50 mg PO TID 07/10/17 [History] Alendronate Sodium [Fosamax] 70 mg PO MO 02/27/18 [History] Atenolol [Tenormin] 50 mg PO DAILY #30 tablet 03/03/18 [Rx] Ferrous Sulfate 325 mg PO DAILY@0800 #60 tablet 03/03/18 [Rx] Tiotropium [Spiriva] 18 mcg IH 0700 #60 capsule 03/03/18 [Rx] Albuterol Sulfate [Proair Hfa] 2 puff IH Q4H PRN 06/25/18 [History] Budesonide/Formoterol 160/4.5 [Symbicort 160/4.5] 2 puff IH BID 06/25/18 [ History] 3 Allergy/AdvReac Type Severity Reaction Status Date / Time amlodipine AdvReac Nausea/WEAK Verified 06/25/18 08:25 All Systems Review: The remainder of the systems were reviewed and are negative - Cardiovascular Cardiovascular: as per HPI, dyspnea on exertion, lightheadedness - Respiratory Respiratory: dyspnea - Gastrointestinal Gastrointestinal: nausea Physical Examination Vital Signs, Last 4 Hours Temp Pulse Resp BP Pulse Ox 06/25/18 14:37 98.1 F 47 18 114/49 93 Vital Signs Temp Pulse Resp BP Pulse Ox 06/25/18 14:37 98.1 F 47 18 114/49 93 06/25/18 13:15 52 19 101/75 99 06/25/18 12:08 40 20 128/39 94 06/25/18 11:40 44 18 115/52 94 06/25/18 10:12 54 16 117/41 90 06/25/18 09:53 92 06/25/18 09:52 51 18 116/64 93 06/25/18 09:16 45 16 95/53 94 06/25/18 08:14 98.0 F 40 16 98/47 92 06/25/18 08:03 98.0 F 40 16 98/47 92 Intake and Output 06/24/18 06/25/18 06/25/18 23:59 07:59 15:59 Intake Total 1390.1 / 1390.1 Balance 1390.1 / 1390.1 Intake: IV Fluids 1390.1 / 1390.1 HumuLIN R 10 UNIT In Normal 10.1 / 10.1 Saline Flush 10 ML @ 1212 mls/ hr IV ONCE ONE Rx#:[id number] 0.9 % Sodium Chloride 1,000 ML 1000 / 1000 @ 999 mls/hr IVC .Q1H1M ONE Rx# :[id number] Rocephin 1,000 MG In Water for 10 inj. (sterile) 10 ML @ 600 mls/ hr IVP ONCE ONE Rx#:[id number] Zithromax 500 mg In Dextrose 5% 250 / 250 250 ML @ 252 mls/hr IVPB ONCE ONE Rx#:[id number] Calcium Gluconate 2,000 MG In 0 120 / 120 .9 % Sodium Chloride 100 ML @ 220 mls/hr IVPB ONCE ONE Rx#: [id number] Other: Weight 68.039 kg Blood Glucose* 117 Patient Weight 06/25/18 23:59 Weight 68.039 kg General: Conversant, No Apparent Distress HEENT: Atraumatic, Normocephaly, Mucus Membranes Moist Neck: No JVD, Normal carotid pulses Cardiac: Reg Rate and Rhythm, Normal S1 and S2, No Murmur Lungs: Normal Breath Sounds, No Wheeze, Rales, Rhonchi Neuro: Alert and responsive, No focal deficits noted Abdomen: Soft, Non-Tender Skin: No rashes noted on visualized skin Musculoskeletal: No Chest Wall Tenderness Extremities: No Clubbing, No Cyanosis, No Edema, Normal Pulses Results 06/25/18 09:10 06/25/18 09:10 Short CBC 06/25/18 Range/Units 09:10 WBC 17.2 H (4.3-11.1) K/mcL Hgb 10.8 L (11.5-15.4) g/dL Hct 35.0 L (35.3-44.9) % Plt Count 271 (140-400) K/mcL Neutrophils # 13.4 H (1.6-8.9) K/mcL BMP 06/25/18 Range/Units 09:10 Sodium 129 L (136-145) mEq/L Potassium 5.1 (3.5-5.1) mEq/L Chloride 97 L (98-107) mEq/L Carbon Dioxide 23 (23-29) mEq/L BUN 41 H (8-23) mg/dL Creatinine 2.20 H (0.60-1.20) mg/dL Glucose 117 H (70-105) mg/dL Calcium 8.0 L (8.6-10.3) mg/dL Cardiac Enzymes 06/25/18 Range/Units 09:10 Troponin I 0.03 (< 0.04) ng/mL Liver Function 06/25/18 Range/Units 09:10 Total Bilirubin 0.7 (0.3-1.0) mg/dL AST 52 H (13-39) Units/L ALT 50 (7-52) Units/L Alkaline Phosphatase 95 (34-104) Units/L Albumin 3.3 L (3.5-5.7) g/dL Urine 06/25/18 Range/Units 10:50 Urine Color Yellow (Yellow) Urine Clarity Clear (Clear) Urine pH 5.0 (5.0-8.0) pH Units Ur Specific [place] 1.019 (1.010-1.025) Urine Protein Trace (Neg-Trace) mg/dL Urine Glucose (UA) 250 H (Normal) mg/dL Impressions Chest X-Ray 06/25/18 08:25 IMPRESSION: 1. Subtle infiltrate in the left lung base which may be related to atelectasis versus pneumonia. 2. Mild pulmonary vascular congestion. D/ / 06/25/2018 08:51:02 Matteo Caal MD / Marianela Kearney Interpreting Provider: Matteo Caal MD Active Medications Sodium Chloride (0.9 % Sodium Chloride) 1,000 mls @ 50 mls/hr IVC .Q20H SHAYLA Stop: 06/27/18 05:29 Ceftriaxone Sodium 2,000 mg/ (Sodium Chloride) 100 mls @ 200 mls/hr IVPB Q24H SHAYLA Stop: 12/26/18 15:01 Doxycycline Hyclate 100 mg/ (Sodium Chloride) 100 mls @ 100 mls/hr IVPB Q12HR SHAYLA Stop: 12/26/18 06:01 Naloxone HCl (Narcan) 0.4 mg IVP Q2MIN PRN PRN Reason: SEE COMMENTS Stop: 12/25/18 13:18 Ondansetron HCl (Zofran) 4 mg IVP Q6HR PRN; Protocol PRN Reason: Nausea Stop: 12/25/18 18:01 - Imaging and Cardiology Stress Test: report reviewed Echo: report reviewed - EKG Interpretation EKG results cardiology: personally reviewed (junctional, LBBB) Consult Discharge Plan - Plan Referrals: Vinicius Jones MD [Primary Care Provider] - 07/04/18 11:30 am David Harper DO [Partnered Physician] - (office will call patient at home)
[2018-06-25] MEDS: Ondansetron 4 MG/2 ML VIAL IVP PRN (17:03)
--- NOTE | 2018-06-25 17:27 | Electrocardiograph Report ---
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
--- NOTE | 2018-06-25 17:31 | Electrocardiograph Report ---
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
--- NOTE | 2018-06-25 17:32 | Electrocardiograph Report ---
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
[2018-06-25] MEDS: *HR* Heparin 5,000 UNIT/ML VIAL SQ SCH (18:16)
[2018-06-25] MEDS: Budesonide/Formoterol 160/4.5 1 PUFF INH IH SCH (20:54)
[2018-06-26 03:12] LABS: Bilirubin,Urine Negative (Negative); Blood,Urine Negative (Negative); Clarity,Urine Clear (Clear); Color,Urine Yellow (Yellow); Glucose,Urine (UA) Normal (Normal); Ketones,Urine Negative (Negative); Leukocyte Esterase,Urine Negative (Negative); Nitrite,Urine Negative (Negative); Protein,Urine Negative (Neg-Trace); Specific Gravity,Urine 1.009 (1.010-1.025); Urobilinogen,Urine Normal (Normal)
[2018-06-26] MEDS: *HR* Heparin 5,000 UNIT/ML VIAL SQ SCH ×2 (04:26→16:41)
[2018-06-26 04:44] LABS: Basophils % 0.2 %; Eosinophils # 0.1 K/mcL (0.0-0.6); Eosinophils % 0.8 %; Hematocrit 36.6 % (35.3-44.9); Hemoglobin 11.5 g/dL (11.5-15.4); Immature Granulocytes % 1.2 % (0-4); Lymphocytes # 1.7 K/mcL (0.6-4.6); Lymphocytes % 12.8 %; Mean Corpuscular HGB Conc 31.4 g/dL (31.6-35.5); Mean Corpuscular Hemoglobin 29.6 pg (28.0-33.3); Mean Corpuscular Volume 94.1 fL (83.0-100.0); Mean Platelet Volume 9.4 fL (9.4-12.4); Monocytes # 0.8 K/mcL (0.0-1.3); Monocytes % 5.9 %; Neutrophils # 10.7 K/mcL (1.6-8.9); Nucleated Red Blood Cells 0.1 /100 WBC (0); Platelet Count 232 K/mcL (140-400); Red Blood Count 3.89 M/mcL (3.82-4.97); Segmented Neutrophils % 79.1 %
[2018-06-26 05:11] LABS: BUN/Creatinine Ratio 25 (6-26); Blood Urea Nitrogen 27 mg/dL (8-23); Calcium 8.7 mg/dL (8.6-10.3); Carbon Dioxide 26 mEq/L (23-29); Chloride 105 mEq/L (98-107); Glucose 104 mg/dL (70-105); Osmolality,Calculated 289 (280-300); Potassium 4.5 mEq/L (3.5-5.1); Sodium 137 mEq/L (136-145); eGFR For Non-African Americans 50 (> 60)
[2018-06-26 05:17] LABS: Thyroid Stimulating Hormone 1.929 mcIU/mL (0.340-5.600)
[2018-06-26] MEDS ORDERED: Doxycycline 100 MG in 0.9 % Sodium Chloride Mini Bag 100 ML IVPB SCH (06:00)
[2018-06-26] MEDS ORDERED: traMADol 50 MG TABLET PO PRN (06:36)
[2018-06-26] MEDS ORDERED: Tiotropium 18 MCG inhalation IH SCH (07:00)
[2018-06-26] MEDS: ALPRAZolam 0.25 MG TABLET PO PRN ×2 (07:10→21:51)
[2018-06-26] MEDS: Cholecalciferol (D-3) 1,000 UNIT TABLET PO SCH (07:41)
[2018-06-26] MEDS: Multivit/Ca/Min/Fe/FA 1 TAB TABLET PO SCH (07:41)
[2018-06-26] MEDS: traMADol 50 MG TABLET PO PRN (07:41)
[2018-06-26] MEDS: Cyanocobalamin (B-12) 1,000 MCG TABLET PO SCH (07:41)
[2018-06-26] MEDS: Budesonide/Formoterol 160/4.5 1 PUFF INH IH SCH ×2 (07:58→19:37)
[2018-06-26] MEDS: Ondansetron 4 MG/2 ML VIAL IVP PRN (09:06)
[2018-06-26] MEDS ORDERED: Ipratropium/Albuterol Neb 3 ML IH PRN (09:18)
[2018-06-26] MEDS ORDERED: Ipratropium/Albuterol Neb 3 ML IH ONE (09:22)
--- NOTE | 2018-06-26 10:47 | Cardiology Progress Note ---
Date of Encounter: 06/26/18 Time of Encounter: 10:44 Assessment and Plan (1) Symptomatic bradycardia Current Visit: Yes Status: Acute Presented with 2 days nausea, weakness, exertional dizziness and dyspnea with HR found in low 40s, intermittent junctional rhythm. Admission EKG junctional rhythm with LBBB. LBBB is known, not new. Pt was on Atenolol 50mg daily, last dose 06/25 AM. Atenolol has been stopped. Recommend avoiding AV magda blockers. Received IV calcium gluconate yesterday in ED. HR has improved since BB has been held. 12 hr tele AVG HR 73, SR, no bradycardc events. HR 80s at bedside. K 5.1 on admission, 4.5 today. Mag and TSH WNL. TTE 06/2017 EF preserved. Nuclear stress test 06/2017 negative for ischemia or infarct. Recheck TTE. If no significant TTE findings, will sign off with outpt follow-up. (2) Essential hypertension Current Visit: Yes Status: Chronic BP hypertensive since stopping Atenolol. Given DAYO on admission, will not start ACEi, but will start Norvasc 5mg daily for BP control. Can adjust/uptitrate as necessary. Discussion w patient/family: The assessment and plan as outlined above was discussed with the patient and/or family members who expressed understanding and agreement. All questions were answered. Thank you for involving us in the care of your patient. Please call with any questions. I will discuss all the above with Dr. Schmidt and make changes as necessary. Subjective Interval history: Pt reports generalized weakness continues. Denies dizziness or dyspnea. HR has improved. 12 hr tele AVG HR 73, no bradycardic events. HR 80s at bedside, SR. Objective Vital Signs, Last 4 Hours Temp Pulse Resp BP Pulse Ox 06/26/18 09:58 16 93 06/26/18 07:58 16 98 06/26/18 07:45 98.6 F 73 18 182/83 95 Vital Signs Temp Pulse Resp BP Pulse Ox 06/26/18 09:58 16 93 06/26/18 07:58 16 98 06/26/18 07:45 98.6 F 73 18 182/83 95 06/26/18 03:55 99.1 F 77 16 148/79 99 06/26/18 02:00 98.4 F 72 20 166/85 99 08/23/18 00:05 98.4 F 72 20 166/85 99 06/25/18 23:21 98.4 F 72 20 166/85 99 06/25/18 20:54 16 96 06/25/18 19:53 98.2 F 70 18 151/65 94 06/25/18 14:37 98.1 F 47 18 114/49 93 06/25/18 13:15 52 19 101/75 99 06/25/18 12:08 40 20 128/39 94 06/25/18 11:40 44 18 115/52 94 Intake and Output 06/25/18 06/26/18 06/26/18 23:59 07:59 15:59 Intake Total 240 / 240 100 / 100 240 / 240 Output Total 500 / 500 2049 Balance -260 / -260 -1950 / -1950 240 / 240 Intake: IV Fluids 100 / 100 Doxycycline 100 MG In 0.9 % 100 / 100 Sodium Chloride (Mini-Bag +) 100 ML @ 100 mls/hr IVPB Q12HR [facility] Rx#:[id number] Oral 240 / 240 0 / 0 240 / 240 Output: Urine 500 / 500 2049 Other: Meal Dinner Breakfast Percent of Meal Consumed 10% 100% General: Conversant, No Apparent Distress HEENT: Atraumatic, Normocephaly, Mucus Membranes Moist Neck: No JVD, Normal carotid pulses Cardiac: Reg Rate and Rhythm, Normal S1 and S2, No Murmur Lungs: Normal Breath Sounds, No Wheeze, Rales, Rhonchi Neuro: Alert and responsive, No focal deficits noted Abdomen: Soft, Non-Tender Skin: No rashes noted on visualized skin Musculoskeletal: No Chest Wall Tenderness Extremities: No Clubbing, No Cyanosis, No Edema, Normal Pulses Results 06/26/18 04:25 06/26/18 04:25 Lab Results 06/25/18 06/26/18 06/26/18 15:11 04:25 04:25 WBC 13.5 H Hgb 11.5 Hct 36.6 Plt Count 232 Sodium 127 L 137 D Potassium 5.0 4.5 Chloride 95 L 105 Carbon Dioxide 23 26 BUN 41 H 27 H Creatinine 2.00 H 1.06 Glucose 125 H 104 Calcium 9.0 8.7 Magnesium TSH 06/26/18 04:25 WBC Hgb Hct Plt Count Sodium Potassium Chloride Carbon Dioxide BUN Creatinine Glucose Calcium Magnesium 2.0 TSH 1.929 Short CBC 06/26/18 Range/Units 04:25 WBC 13.5 H (4.3-11.1) K/mcL Hgb 11.5 (11.5-15.4) g/dL Hct 36.6 (35.3-44.9) % Plt Count 232 (140-400) K/mcL Neutrophils # 10.7 H (1.6-8.9) K/mcL BMP 06/26/18 06/25/18 Range/Units 04:25 15:11 Sodium 137 D 127 L (136-145) mEq/L Potassium 4.5 5.0 (3.5-5.1) mEq/L Chloride 105 95 L (98-107) mEq/L Carbon Dioxide 26 23 (23-29) mEq/L BUN 27 H 41 H (8-23) mg/dL Creatinine 1.06 2.00 H (0.60-1.20) mg/dL Glucose 104 125 H (70-105) mg/dL Calcium 8.7 9.0 (8.6-10.3) mg/dL Urine 06/26/18 06/25/18 Range/Units 02:00 10:50 Urine Color Yellow Yellow (Yellow) Urine Clarity Clear Clear (Clear) Urine pH 6.0 5.0 (5.0-8.0) pH Units Ur Specific [place] 1.009 L 1.019 (1.010-1.025) Urine Protein Negative Trace (Neg-Trace) mg/dL Urine Glucose (UA) Normal 250 H (Normal) mg/dL Active Medications Acetaminophen (Tylenol) 500 mg PO Q6HR PRN PRN Reason: Mild Pain Stop: 12/25/18 19:23 Albuterol Sulfate (Albuterol Inhaler) 2 puff IH [id number] PRN PRN Reason: Shortness Of Breath Stop: 12/26/18 00:01 Albuterol/Ipratropium (Duoneb) 3 ml IH [id number] PRN PRN Reason: Shortness Of Breath/Wheezing Stop: 12/26/18 09:19 Alprazolam (Xanax) 0.25 mg PO BID PRN; Protocol PRN Reason: Anxiety Stop: 12/26/18 06:37 Last Admin: 06/26/18 07:10 Dose: 0.25 mg Budesonide/Formoterol Fumarate (Symbicort) 2 puff IH BIDR SHAYLA PRN Reason: Protocol Stop: 12/25/18 22:01 Last Admin: 06/26/18 07:58 Dose: 2 puff Cyanocobalamin (Vitamin B12) 1,000 mcg PO DAILY SHAYLA Stop: 12/26/18 09:01 Last Admin: 06/26/18 07:41 Dose: 1,000 mcg Ferrous Sulfate (Ferrous Sulfate) 325 mg PO DAILY@0800 SHAYLA Stop: 12/26/18 08:01 Last Admin: 06/26/18 07:42 Dose: 325 mg Heparin Sodium (Porcine) (Heparin) 5,000 unit SQ Q12HCO [facility] Stop: 12/25/18 18:01 Last Admin: 06/26/18 04:26 Dose: 5,000 unit Ceftriaxone Sodium 2,000 mg/ (Sodium Chloride) 100 mls @ 200 mls/hr IVPB Q24H [facility] Stop: 12/26/18 15:01 Doxycycline Hyclate 100 mg/ (Sodium Chloride) 100 mls @ 100 mls/hr IVPB Q12HR SHAYLA Stop: 12/26/18 06:01 Last Infusion: 06/26/18 05:30 Dose: Infused Levothyroxine Sodium (Synthroid) 75 mcg PO 0630 [facility] Stop: 12/26/18 06:31 Last Admin: 06/26/18 06:40 Dose: 75 mcg Meloxicam (Mobic) 15 mg PO DAILY [facility] Stop: 12/26/18 09:01 Last Admin: 06/26/18 07:42 Dose: 15 mg Multivitamins/Calcium (Thera M Plus) 1 tab PO DAILY [facility] Stop: 12/26/18 09:01 Last Admin: 06/26/18 07:41 Dose: 1 tab Naloxone HCl (Narcan) 0.4 mg IVP Q2MIN PRN PRN Reason: SEE COMMENTS Stop: 12/25/18 13:18 Ondansetron HCl (Zofran) 4 mg IVP Q6HR PRN; Protocol PRN Reason: Nausea Stop: 12/25/18 18:01 Last Admin: 06/26/18 09:06 Dose: 4 mg Simvastatin (Zocor) 10 mg PO HS [facility] Stop: 02/21/19 21:01 Last Admin: 06/25/18 21:27 Dose: 10 mg Tiotropium [place] (Spiriva) 18 mcg IH 0700 SHAYLA Stop: 12/26/18 07:01 Last Admin: 06/26/18 09:58 Dose: Not Given Tramadol HCl (Ultram) 50 mg PO TID PRN PRN Reason: moderate pain Stop: 12/26/18 06:37 Last Admin: 06/26/18 07:41 Dose: 50 mg Vitamin D (Vitamin D) 1,000 unit PO DAILY SHAYLA Stop: 12/26/18 09:01 Last Admin: 06/26/18 07:41 Dose: 1,000 unit - Imaging and Cardiology Echo: pending - EKG Interpretation EKG results cardiology: other (12 hr tele AVG HR 73, SR, no significant pauses or arrhythmias noted) Consult Discharge Plan - Plan Referrals: Vinicius Jones MD [Primary Care Provider] - 07/04/18 11:30 am David Harper DO [Partnered Physician] - (office will call patient at home)
[2018-06-26] MEDS ORDERED: MethylPREDNISolone 40 MG/ML VIAL IVP SCH (11:00)
[2018-06-26] MEDS ORDERED: MethylPREDNISolone 40 MG/ML VIAL IVP ONE (11:19)
[2018-06-26] MEDS ORDERED: Azithromycin 500 MG in D5% in Water 250 ML IVPB SCH (12:00)
--- NOTE | 2018-06-26 12:55 | Internal Med Progress Note ---
Hospitalist Progress Note - Encounter Date of Encounter: 06/26/18 Time of Encounter: 09:00 - Subjective Interval History: History revisited. Has been having generalized weakness associated with nausea for the last 3-4 days. Denies any sick contact. Denies any chest pain, shortness of breath, cough, or sputum production. Poor oral intake recently as she felt like she had "flu". - Exam Vitals: Temp Pulse Resp BP Pulse Ox 97.5 F L 82 16 152/82 95 06/26/18 10:44 06/26/18 11:46 06/26/18 10:44 06/26/18 10:44 06/26/18 10:44 Exam: General: Alert and oriented, not in acute distress. Cardiovascular:Normal S1 & S2, No JVD. Pulse regular. Lungs: scattered wheezes bilaterally Abdomen:Soft, non-tender, no rigidity. Extremities:No deformity or swelling - Assessment and Plan (1) Symptomatic bradycardia Current Visit: Yes Status: Acute Assessment and Plan: In the setting of volume depletion with DAYO and concurrent use of beta mauricio atenolol on hold, no further episodes observed overnight TSH, fT4 normal, electolytes WNL Check Echocardiogram (2) COPD with acute exacerbation Current Visit: No Status: Acute Assessment and Plan: CXR findings atelectasis vs. pneumonia, patient did not have any symptoms suggestive but was wheezing on exam will empirically treat it per COPD exacerbation with steroid, bronchodilators, and azithromycin given equivocal finding on CXR resume home inhalers (3) DAYO (acute kidney injury) Current Visit: No Status: Inactive Assessment and Plan: Improved with IVF encourage oral intake (4) Essential hypertension Current Visit: Yes Status: Chronic Assessment and Plan: was hypotensive on presentation and now improved losartan restarted at half dose DVT Prophylaxis: SQ heparin - Time Spent with Patient Total time spent is greater than 50% in coordination of care (as documented) at patient's floor/unit and/or counseling patient: Greater than 35 minutes Plan of Care Discussed with: nurse (also discussed with patient's at great length) Internal Medicine: Result - Labs CBC & Chem 7: 06/26/18 04:25 06/26/18 04:25 Labs: Short CBC 06/26/18 Range/Units 04:25 WBC 13.5 H (4.3-11.1) K/mcL Hgb 11.5 (11.5-15.4) g/dL Hct 36.6 (35.3-44.9) % Plt Count 232 (140-400) K/mcL Neutrophils # 10.7 H (1.6-8.9) K/mcL BMP 06/25/18 06/26/18 15:11 04:25 Sodium 127 L 137 D Potassium 5.0 4.5 Chloride 95 L 105 Carbon Dioxide 23 26 BUN 41 H 27 H Creatinine 2.00 H 1.06 Glucose 125 H 104 Calcium 9.0 8.7 Urine 06/26/18 Range/Units 02:00 Urine Color Yellow (Yellow) Urine Clarity Clear (Clear) Urine pH 6.0 (5.0-8.0) pH Units Ur Specific [place] 1.009 L (1.010-1.025) Urine Protein Negative (Neg-Trace) mg/dL Urine Glucose (UA) Normal (Normal) mg/dL Consult Discharge Plan - Plan Referrals: Vinicius Jones MD [Primary Care Provider] - 07/04/18 11:30 am David Harper DO [Partnered Physician] - (office will call patient at home)
[2018-06-26] MEDS ORDERED: cefTRIAXone 2,000 MG in 0.9 % Sodium Chloride Mini Bag 100 ML IVPB SCH (15:00)
[2018-06-26] MEDS: Ipratropium/Albuterol Neb 3 ML IH SCH ×4 (16:25→23:16)
[2018-06-26] MEDS: MethylPREDNISolone 40 MG/ML VIAL IVP SCH (21:51)
[2018-06-27] MEDS: Ipratropium/Albuterol Neb 3 ML IH SCH ×4 (03:51→15:48)
[2018-06-27] MEDS: traMADol 50 MG TABLET PO PRN (05:46)
[2018-06-27] MEDS: *HR* Heparin 5,000 UNIT/ML VIAL SQ SCH (05:46)
[2018-06-27] MEDS: Budesonide/Formoterol 160/4.5 1 PUFF INH IH SCH (08:03)
[2018-06-27] MEDS: Cholecalciferol (D-3) 1,000 UNIT TABLET PO SCH (08:22)
[2018-06-27] MEDS: Multivit/Ca/Min/Fe/FA 1 TAB TABLET PO SCH (08:22)
[2018-06-27] MEDS: Cyanocobalamin (B-12) 1,000 MCG TABLET PO SCH (08:22)
[2018-06-27] MEDS: MethylPREDNISolone 40 MG/ML VIAL IVP SCH (08:23)
[2018-06-27] MEDS ORDERED: Azithromycin 250 MG TABLET PO SCH (09:00)
--- NOTE | 2018-06-27 11:04 | Cardiology Progress Note ---
Date of Encounter: 06/27/18 Time of Encounter: 11:00 Assessment and Plan (1) Symptomatic bradycardia Current Visit: Yes Status: Acute Presented with 2 days nausea, weakness, exertional dizziness and dyspnea with HR found in low 40s, intermittent junctional rhythm. Admission EKG junctional rhythm with LBBB. LBBB is known, not new. Pt was on Atenolol 50mg daily, last dose 06/25 AM. Atenolol has been stopped. Recommend avoiding AV magda blockers. K 5.1 on admission, 4.5 today. Mag and TSH WNL. TTE 06/2017 EF preserved. Nuclear stress test 06/2017 negative for ischemia or infarct. TTE this admission: LVEF 70%, mild LVDD, no significant valvular dysfunction, asymmetric hypertrophy of the basal septum, turbulence seen in the LVOT with mild outflow tract obstruction (MG=9 mmHg). Reviewed with Dr. Schmidt; given findings of TTE, patient would benefit from volume replacement. Will give 1 bag IVF @ 100 mL/hr. Continue to avoid BB given x2 admissions with symptomatic bradycardia. No further testing, will coordinate outpatient follow-up. (2) Essential hypertension Current Visit: Yes Status: Chronic BP hypertensive since stopping Atenolol. Restarted on losartan yesterday, (DAYO resolved). Further BP mgmt per primary service. Discussion w patient/family: The assessment and plan as outlined above was discussed with the patient and/or family members who expressed understanding and agreement. All questions were answered. Thank you for involving us in the care of your patient. Please call with any questions. The patient will be discussed and reviewed with Dr. Schmidt; changes to be made accordingly. Subjective Principal diagnosis: Symptomatic bradycardia Interval history: Seen and examined. No complaints upon exam today. HR have remained stable overnight. Objective Vital Signs, Last 4 Hours Temp Pulse Resp BP Pulse Ox 06/27/18 08:05 16 98 06/27/18 07:22 98.5 F 89 18 171/78 98 General: Conversant, No Apparent Distress HEENT: Atraumatic, Normocephaly Cardiac: Reg Rate and Rhythm, Normal S1 and S2 Lungs: Normal Breath Sounds Neuro: Alert and responsive Abdomen: Soft Skin: No rashes noted on visualized skin Musculoskeletal: No Chest Wall Tenderness Extremities: No Edema, Normal Pulses Results 06/26/18 04:25 08/23/18 04:25 Active Medications Acetaminophen (Tylenol) 500 mg PO Q6HR PRN PRN Reason: Mild Pain Stop: 12/25/18 19:23 Albuterol Sulfate (Albuterol Inhaler) 2 puff IH [id number] PRN PRN Reason: Shortness Of Breath Stop: 12/26/18 00:01 Albuterol/Ipratropium (Duoneb) 3 ml IH [id number] [facility] Stop: 12/26/18 12:01 Last Admin: 06/27/18 11:27 Dose: Not Given Alprazolam (Xanax) 0.25 mg PO BID PRN; Protocol PRN Reason: Anxiety Stop: 12/26/18 06:37 Last Admin: 06/26/18 21:51 Dose: 0.25 mg Azithromycin (Zithromax) 500 mg PO DAILY [facility] Stop: 12/27/18 09:01 Last Admin: 06/27/18 08:22 Dose: 500 mg Budesonide/Formoterol Fumarate (Symbicort) 2 puff IH BIDR [facility] PRN Reason: Protocol Stop: 12/25/18 22:01 Last Admin: 06/27/18 08:03 Dose: 2 puff Cyanocobalamin (Vitamin B12) 1,000 mcg PO DAILY [facility] Stop: 12/26/18 09:01 Last Admin: 06/27/18 08:22 Dose: 1,000 mcg Ferrous Sulfate (Ferrous Sulfate) 325 mg PO DAILY@0800 [facility] Stop: 12/26/18 08:01 Last Admin: 06/27/18 08:23 Dose: 325 mg Heparin Sodium (Porcine) (Heparin) 5,000 unit SQ Q12HCO [facility] Stop: 12/25/18 18:01 Last Admin: 06/27/18 05:46 Dose: 5,000 unit Hydralazine HCl (Hydralazine) 10 mg IVP Q6HR PRN PRN Reason: Hypertension Stop: 12/26/18 10:55 Sodium Chloride (0.9 % Sodium Chloride) 1,000 mls @ 100 mls/hr IVC .Q10H [facility] Stop: 06/27/18 21:14 Levothyroxine Sodium (Synthroid) 75 mcg PO 0630 [facility] Stop: 12/26/18 06:31 Last Admin: 06/27/18 05:46 Dose: 75 mcg Losartan Potassium (Cozaar) 100 mg PO DAILY [facility] Stop: 12/27/18 09:01 Last Admin: 06/27/18 08:19 Dose: 100 mg Methylprednisolone (Solu-Medrol) 40 mg IVP BID [facility] Stop: 12/26/18 21:01 Last Admin: 06/27/18 08:23 Dose: 40 mg Multivitamins/Calcium (Thera M Plus) 1 tab PO DAILY [facility] Stop: 12/26/18 09:01 Last Admin: 06/27/18 08:22 Dose: 1 tab Naloxone HCl (Narcan) 0.4 mg IVP Q2MIN PRN PRN Reason: SEE COMMENTS Stop: 12/25/18 13:18 Ondansetron HCl (Zofran) 4 mg IVP Q6HR PRN; Protocol PRN Reason: Nausea Stop: 12/25/18 18:01 Last Admin: 06/26/18 09:06 Dose: 4 mg Simvastatin (Zocor) 10 mg PO HS [facility] Stop: 12/25/18 21:01 Last Admin: 06/26/18 21:51 Dose: 10 mg Tramadol HCl (Ultram) 50 mg PO TID PRN PRN Reason: moderate pain Stop: 12/26/18 06:37 Last Admin: 06/27/18 05:46 Dose: 50 mg Vitamin D (Vitamin D) 1,000 unit PO DAILY [facility] Stop: 12/26/18 09:01 Last Admin: 06/27/18 08:22 Dose: 1,000 unit - Imaging and Cardiology Echo: report reviewed Other Results: 12 hour tele: avg HR=94 SR - EKG Interpretation EKG results cardiology: personally reviewed Consult Discharge Plan - Plan Referrals: Vinicius Jones MD [Primary Care Provider] - 07/04/18 11:30 am David Harper DO [Partnered Physician] - (office will call patient at home)
[2018-06-27] MEDS ORDERED: 0.9 % Sodium Chloride 1,000 ML IVC SCH (11:15)
--- NOTE | 2018-06-27 15:14 | Discharge Summary ---
- NOTES TO OUTPATIENT PROVIDER Notes to Outpatient Provider: Patient is admitted for symptomatically cardiac the setting of volume depletion and a cat. Also diagnosed with COPD exacerbation. Atenolol was stopped and she was given IV fluid as well as steroids/bronchodilators/azithromycin. Her DAYO resolved and she improved from her symptomatology standpoint. She will be discharged home on steriod/ azithromycin and will also be given nebulizer and O2 upon ambulation. Date of Encounter: 06/27/18 Time of Encounter: 14:00 - Discharge Diagnosis (1) Symptomatic bradycardia Priority: Primary Status: Acute (2) COPD with acute exacerbation Priority: Secondary Status: Acute (3) DAYO (acute kidney injury) Priority: Secondary Status: Inactive (4) Essential hypertension Priority: Secondary Status: Chronic Hospital course: Ms. Gabriel is a 77 year old female with past medical history of hypertension on atenolol, hyperlipidemia, COPD presented to the ED with nausea and weakness. Her heart rate was noted to be in the 40s and was complaining of dizziness as well. She was diagnosed with symptomatic bradycardia in the setting of volume depletion and DAYO. She was also diagnosed with COPD exacerbation when patient was found to have wheezing on physical exam. She was given IV fluid with normalization of her heart rate as well as creatinine. Was also treated with IV steroids, bronchodilators, and azithromycin. She has clinically improved and will be discharged home on a course of steroid and azithromycin as well as nebulizer with oxygen. - Time Spent with Patient Total time spent providing and/or coordinating discharge services: Greater than 30 minutes - Discharge Medications Prescriptions: Ipratropium/Albuterol Neb [Duoneb] 3 ml IH [id number] PRN #30 inhsol PRN Reason: Wheezing Azithromycin [Zithromax] 500 mg PO DAILY #3 tablet predniSONE [PredniSONE] 40 mg PO DAILY #5 tablet Home Medications: ALPRAZolam [Xanax 0.5 MG Tablet] 0.5 mg PO BID 07/10/17 [History] Acetaminophen [Tylenol] 500 mg PO Q6HR PRN 07/10/17 [History] Cholecalciferol (D-3) [Vitamin D] 1,000 unit PO DAILY 07/10/17 [History] Cyanocobalamin (Vitamin B-12) [Vitamin B-12] 1,000 mcg SL DAILY 07/10/17 [ History] Levothyroxine [Synthroid] 75 mcg PO DAILY 07/10/17 [History] Losartan Potassium [Cozaar] 100 mg PO DAILY 07/10/17 [History] Lovastatin [Mevacor] 20 mg PO HS 07/10/17 [History] Multivitamin [One Daily Multivitamin] 1 each PO DAILY 07/10/17 [History] Tramadol HCl [Ultram] 50 mg PO TID 07/10/17 [History] Alendronate Sodium [Fosamax] 70 mg PO MO 02/27/18 [History] Ferrous Sulfate 325 mg PO DAILY@0800 #60 tablet 03/03/18 [Rx] Tiotropium [Spiriva] 18 mcg IH 0700 #60 capsule 03/03/18 [Rx] Albuterol Sulfate [Proair Hfa] 2 puff IH Q4H PRN 06/25/18 [History] Budesonide/Formoterol 160/4.5 [Symbicort 160/4.5] 2 puff IH BID 06/25/18 [ History] Azithromycin [Zithromax] 500 mg PO DAILY #3 tablet 06/27/18 [Rx] Ipratropium/Albuterol Neb [Duoneb] 3 ml IH [id number] PRN #30 inhsol 06/27/18 [Rx] predniSONE [PredniSONE] 40 mg PO DAILY #5 tablet 06/27/18 [Rx] Allergies/Adverse Reactions: 3 Allergy/AdvReac Type Severity Reaction Status Date / Time amlodipine AdvReac Nausea/WEAK Verified 06/25/18 08:25 Date of admission: 06/25/18 13:51 Primary care physician: Vinicius Jones MD Consults: 06/26/18 07:44 Consult to Physical Therapy [CONS] Routine Comment: Evaluate, develop and implement POC Reason for Consult: deconditioning Does patient have active BEDREST order?: No Is patient medically & hemodynamically stable?: Yes - Constitutional Vitals: Temp Pulse Resp BP Pulse Ox 98.1 F 97 18 167/78 93 06/27/18 11:36 06/27/18 11:36 06/27/18 11:36 06/27/18 11:36 06/27/18 13:40 Exam: General: Alert and oriented, not in acute distress. Cardiovascular:Normal S1 & S2, No JVD. Pulse regular. Lungs: clear to auscultation Abdomen:Soft, non-tender, no rigidity. Extremities:No deformity or swelling - Patient Status Disposition: Home, Self-Care Condition: Fair Functional capacity at discharge: independent ambulation Overall status at discharge: patient is progressing back to baseline - Discharge Instructions Instructions: Acute Kidney Injury (DC), Chronic Obstructive Pulmonary Disease ( DC), Chronic Hypertension (DC) Follow Up With: Vinicius Jones MD [Primary Care Provider] - 07/04/18 11:30 am David Harper DO [Partnered Physician] - (office will call patient at home) - Diet and Activity Activity: resume usual activities as tolerated Diet: advance to your usual diet
[2018-06-27 15:17] VITALS: BP 171/72
[2018-06-30] MEDS ORDERED: NON-FORMULARY MEDICATION 1 EACH EACH (Alendronate Sodium [Fosamax] 70 MG) PO SCH (19:22)
== END 2018-06-27 16:01 | disposition home or self-care (01) | DRG 682 ==
LOC: EMEROOARM 08:01 → SUATTDRO 13:51 → INTOOBSV 13:51 → 2NNU 13:51
PROVIDERS: ADMIT Internal Medicine; ATTEND Internal Medicine